=== PATIENT | male | born 1945 ===

== ENCOUNTER 2016-07-15 06:34 | Inpatient (IN) | payer BC, MEDICARE ==
[2015-06-29 14:21] VITALS: BMI 29.2
[2016-07-15] MEDS ORDERED: Propofol 10 mg/ml Inj (20 ML) ONE (07:50)
[2016-07-15] MEDS ORDERED: Lactated Ringer's 1,000 ML IV ONE ×3 (07:50→09:15)
[2016-07-15] MEDS ORDERED: Midazolam 2 MG/2 ML VIAL ONE (07:50)
[2016-07-15] MEDS ORDERED: cefTRIAXone IV 1 gm in Dextros 50 ML IVPB ONE (07:54)
[2016-07-15] MEDS ORDERED: Morphine Monoject Barrel PCA 1mg/ml IV PRN (09:38)
[2016-07-15] MEDS ORDERED: Neostigmine Methylsulfate 3mg/3ml Syringe IV ONE (09:42)
[2016-07-15] MEDS ORDERED: Gentamicin 80 mg in 0.9% NS 100 ML IVPB ONE ×2 (10:10→12:00)
--- NOTE | 2016-07-15 10:10 | PCM.SURG1 ---
Surgeon's Initial Post Op Note - Surgeon's Notes Surgeon: Maikol SUERO Ferryboat Helper: Eliseo SUERO Pre-Operative Diagnosis: BPH. BLADDER CALCULI Operative Findings: SAME Post-Operative Diagnosis: SAME Operation Performed: SUPRAPUBIC PROSTATECTOMY, CYSTOLITHOTOMY Specimen/Specimens Removed: PROSTATE, BLADDER STONES Estimated Blood Loss: EBL {In ML}: 150 Blood Products Given: N/A Drains Used: Sierra Ashby Post-Op Condition: Good Date of Surgery/Procedure: 07/15/16 Time of Surgery/Procedure: 09:40
[2016-07-15] MEDS: HYDROmorphone 0.5 mg/0.5 ml ISec IVP PRN ×4 (10:30→12:32)
[2016-07-15] MEDS: Potassium Ch 20mEq in D5-1/2NS 1,000 ML IV SCH (12:00)
--- NOTE | 2016-07-15 12:10 | CP.PCM.CON ---
History of Present Illness - History of Present Illness History of Present Illness: COMPREHENSIVE CONSULT HPI PT IS S/P SUPRAPUBIC PROSTECTOMY FOR MEDICAL F/U CURRENTLY POST OP PAST HIST. HTN/STROKE/.ROLL TRUCKER SHUNT/BUR HOLE PERSONAL HIST: Smoking. Y Alcohol. Y Allergy N Travel_- . FAMILY HIST : ROS : Constitutional: Negative for weight change, chills, Eyes: Negative for redness, swelling, itching, discharge, vision changes, blurry vision, double vision, glaucoma, cataracts, Ears: Negative for hearing loss, ringing, , tinnitus, vertigo Nose: Negative for rhinorrhea, stuffiness, sniffing, itching, postnasal drip, discoloration, nasal congestion and epistaxis. Throat: Negative for throat clearing, sore throat, hoarseness, difficulty swallowing and difficulty speaking. Respiratory: Negative for cough, chest tightness, sputum or phlegm, chronic cough, hemoptysis, wheezing, snoring at night, pleuritic chest pain and daytime somnolence. Cardiovascular: Negative for chest pain, palpitations, orthopnea, PND, Edema of legs, leg cramps, angina, claudication, syncope, irregular heartbeat, Neurology: Negative for irritability, muscle weakness, numbness and tingling, seizures, tremors, migraines, dizziness/vertigo, slurred speech, syncope, memory loss, mood changes, recurrent headaches Gastrointestinal: Negative for difficulty swallowing, diarrhea, constipation, black stools, rectal bleeding, nausea, flatulence, reflux, poor appetite, changes in bowel habits, abdominal pain Genitourinary POST OP Musculoskeletal: Negative for swollen joints, back pain, , neck pain, morning stiffness of joints, . Skin: Negative for rash, ulcers, itching, dry skin and pigmented lesions. P/E: Constitutional: Appears stated age and in no apparent distress. Head: Normocephalic. Ears: External ear canals patent without inflammation. Tympanic membranes intact with normal light reflex and landmark. Eyes: Pupils are central, bilaterally equal, symmetrical and reacts to light with normal movements and no icterus or pallor. Nose: External nares are patent. Mucosa is pink Mouth-Throat: Good general appearance and condition. No post-pharyngeal/oropharyngeal erythema and tonsillar hypertrophy. Good dental hygiene. Neck-Lymphatic: Neck is supple with normal ROM, no thyromegaly, lymph nodes or masses. JVD is normal with no carotid bruit. Lungs: Clear to percussion and auscultation with bilateral normal air entry. Cardiovascular: S1 and S2 are normal with no murmurs, gallops and rub. GI Exam: No hepatomegaly. Abdomen is soft and non-tender. No Organomegaly , masses or hernias are evident and bowel sounds are normal and active. Neurology: Higher function and all cranial nerves intact, with no gross motor or sensory deficit. Superficial and deep reflexes are normal with downwards planters. No cerebellar deficit with normal gait. Musculoskeletal: No tender spots with normal curvature of the spine with no swelling or restricted ROM of the small and large joints. Extremities: Homans sign absent. Intact pulses with no pitting edema, calf tenderness or skin color changes. Skin: No rash, eruptions or abnormal skin pigmentation LAB/RADIOLOGY: ASSESMENT : 1 S/P PROSTECTOMY 2 HTN STABLE 3 HAD IV LEXISCAN MYOVIEW, WILL REVIEW 4 PLAN : Past Patient History - Past Social History Smoking Status: Current Some Days Smoker - CARDIAC Hx Cardiac Disorders: Yes Hx Hypercholesterolemia: Yes Hx Hypertension: Yes - PULMONARY Hx Respiratory Disorders: Yes Hx Pulmonary Edema: Yes (PER DR BRUNNER CLEARANCE PT UNAWARE) - NEUROLOGICAL Hx Neurological Disorder: Yes Other/Comment: brain bleed x2 - HEENT Hx HEENT Problems: Yes Hx Cataracts: Yes (right eye) - RENAL Hx Chronic Kidney Disease: Yes Hx Kidney Stones: Yes - MUSCULOSKELETAL/RHEUMATOLOGICAL Hx Musculoskeletal Disorders: Yes Hx Falls: Yes - GENITOURINARY/GYNECOLOGICAL Hx Genitourinary Disorders: Yes Hx Prostate Problems: Yes (ELEVATED PSA) - SURGICAL HISTORY Hx Surgeries: Yes Hx Appendectomy: Yes Hx Cardiac Catheterization: Yes (2012) Other/Comment: prostate. bladder stones - ANESTHESIA Hx Anesthesia: Yes Hx Anesthesia Reactions: No Hx Malignant Hyperthermia: No Has any member of the family had a problem w/ anesthesia?: No Meds Allergies/Adverse Reactions: Allergies Allergy/AdvReac Type Severity Reaction Status Date / Time No Known Allergies Allergy Verified 06/29/15 14:13 - Medications Medications: Current Medications Docusate Sodium (Colace) 100 mg PO TID [facility] Potassium Chloride/Dextrose/Sod Cl (Potassium Chl 20 Meq In D5-1/2ns) 1,000 mls @ 100 mls/hr IV .Q10H [facility] Ceftriaxone Sodium (Rocephin Iv 1 Gm Duplex) 50 mls @ 100 mls/hr IVPB DAILY [facility] Gentamicin Sulfate/Sodium Chloride (Gentamicin Iv 80 Mg Premix) 100 mls @ 100 mls/hr IVPB ONCE ONE Stop: 07/15/16 12:59 Last Admin: 07/15/16 11:00 Dose: 0 mls Morphine Sulfate/Sodium Chloride (Morphine Seo Team Lead Monoject Barrel) 30 mg IV Q4 PRN PRN Reason: Protocol Results - Vital Signs Recent Vital Signs: Last Vital Signs Temp 97.6 F 07/15/16 10:06 Pulse 72 07/15/16 11:30 Resp 11 L 07/15/16 11:30 BP 115/70 07/15/16 11:30 Pulse Ox 95 07/15/16 11:30 - Labs Labs: Laboratory Results - last 24 hr 07/15/16 07:30 Blood Type O POSITIVE Antibody Screen Negative
[2016-07-15] MEDS ORDERED: DiphenhydrAMINE 50 mg/ml Inj ONE (13:53)
[2016-07-15] MEDS ORDERED: DiphenhydrAMINE 50 mg/ml Inj IVP STA (13:55)
[2016-07-16] MEDS: Potassium Ch 20mEq in D5-1/2NS 1,000 ML IV SCH ×4 (00:16→16:33)
[2016-07-16 07:25] LABS: CHLORIDE 105 mmol/L (98-107); POTASSIUM 3.7 mmol/L (3.6-5.2); SODIUM 139 mmol/L (132-148)
[2016-07-16 07:28] LABS: BLOOD UREA NITROGEN 19 mg/dL (9-20); CALCIUM 8.2 mg/dl (8.6-10.4); CARBON DIOXIDE 21 mmol/L (22-30); GFR AFRICAN-AMERICAN > 60; GLUCOSE,RANDOM 118 mg/dL (75-110)
[2016-07-16 07:45] LABS: HEMATOCRIT 42.1 % (35.0-51.0); MEAN CELL VOLUME 87.2 fL (80.0-94.0); MEAN CORPUSCULAR HEMOGLOBIN 28.6 pg (27.0-31.0); MEAN CORPUSCULAR HGB CONC 32.8 g/dL (33.0-37.0); MEAN PLATELET VOLUME 8.9 fL (7.2-11.7); RED CELL DISTRIBUTION WIDTH 14.8 % (11.5-14.5)
[2016-07-16 07:51] LABS: WHITE BLOOD COUNT 19.7 K/uL (4.8-10.8)
--- NOTE | 2016-07-16 07:51 | PCM.URO ---
Urology Progress Note - General General: Tolerating Diet - Subjective Abdominal Pain: Yes Flank Pain: No Nausea: No Vomiting: No Hematuria: No Dsypnea: No Chest Pain: No Fever & Chills: No - Objective Lab Results Last 24 Hours: Laboratory Results - last 24 hr 07/15/16 07/16/16 07:30 07:06 Sodium 139 Potassium 3.7 Chloride 105 Carbon Dioxide 21 L Anion Gap 17 BUN 19 Creatinine 1.1 Est GFR ( Amer) > 60 Est GFR (Non-Af Amer) > 60 Random Glucose 118 H Calcium 8.2 L Blood Type O POSITIVE Antibody Screen Negative Intake & Output: Intake & Output 07/15/16 07/16/16 07/16/16 18:59 06:59 18:59 Intake Total 50 9900 Output Total 800 77665 Balance -750 -3050 Intake: IV 50 Intake, IV Amount 800 Left Antecubital 800 Oral 100 Other 9000 Output: Drainage 50 50 Lower Abdomen 50 Urine 750 05821 3-way Urethral 1950 Other: Voiding Method 3-way Jennings with CBI Vital Signs: Vital Signs - 24 hr 07/15/16 07/15/16 07/15/16 10:06 10:20 10:30 Temperature 97.6 F Pulse Rate 87 78 70 Respiratory 15 13 12 Rate Blood Pressure 104/63 108/61 111/68 O2 Sat by Pulse 94 L 94 L 94 L Oximetry 07/15/16 07/15/16 07/15/16 10:45 11:00 11:15 Temperature Pulse Rate 68 69 72 Respiratory 12 13 12 Rate Blood Pressure 118/67 112/64 127/67 O2 Sat by Pulse 95 95 96 Oximetry 07/15/16 07/15/16 07/15/16 11:30 12:00 12:30 Temperature Pulse Rate 72 78 82 Respiratory 11 L 12 13 Rate Blood Pressure 115/70 110/68 114/68 O2 Sat by Pulse 95 96 96 Oximetry 07/15/16 07/15/16 07/15/16 13:00 14:00 15:00 Temperature Pulse Rate 85 84 88 Respiratory 14 13 12 Rate Blood Pressure 109/63 113/82 103/60 O2 Sat by Pulse 95 95 97 Oximetry 07/15/16 07/15/16 07/15/16 16:00 16:20 16:45 Temperature 98 F Pulse Rate 87 87 88 Respiratory 15 15 20 Rate Blood Pressure 119/68 119/68 120/69 O2 Sat by Pulse 98 98 97 Oximetry 07/15/16 07/15/16 07/15/16 17:00 17:45 18:00 Temperature 98.9 F Pulse Rate 92 H 95 H 94 H Respiratory 18 21 21 Rate Blood Pressure 123/73 126/68 156/92 H O2 Sat by Pulse 96 97 94 L Oximetry 07/15/16 07/16/16 23:30 04:05 Temperature 98.3 F 98.8 F Pulse Rate 102 H 94 H Respiratory 20 20 Rate Blood Pressure 125/67 155/84 H O2 Sat by Pulse 94 L 95 Oximetry - Physical Exam Abdominal Exam: Soft (LUNGS: CLEAR TO PAND A HERAT: REG RHYTHM), Non-Tender, Non -Distended Bowel Sounds: Normal Dressing: Dry, Intact Back: No CVA Tenderness Genitalia: Without Inflammation Urinary Catheter Draining Well: Yes Urine Color: Clear, Yellow Extremities: Normal: Bilateral - Male Phallus: Normal Scrotum: Normal Testes: Normal: Bilateral - Plan Advance Diet: Yes Catheter Care: Yes Ambulation - Out of Bed: Yes Intake & Output: Yes See Orders: Yes Additional Information: IMP: DOING WELL POST-SPP - Date & Time of Note Date: 07/16/16 Time: 07:50
[2016-07-16] MEDS: cefTRIAXone IV 1 gm in Dextros 50 ML IVPB SCH (11:08)
--- NOTE | 2016-07-16 12:56 | CP.PCM.PN ---
Subjective - Date & Time of Evaluation Date of Evaluation: 07/16/16 Time of Evaluation: 12:55 - Subjective Subjective: POST OP /NO CP URINE GRM NEG RODS STRESS TEST REVIEWED: POS FOR ISCHEMIC HEART DISEASE , WILL D/W FAMILY Objective - Vital Signs/Intake and Output Vital Signs (last 24 hours): Temp Pulse Resp BP Pulse Ox 98.7 F 94 H 35 H 162/81 H 95 07/16/16 08:07 07/16/16 08:07 07/16/16 09:24 07/16/16 08:07 07/16/16 09:24 Intake and Output: 07/16/16 07/16/16 11:59 23:59 Intake Total 6900 Output Total 7430 Balance -530 - Medications Medications: Current Medications Amlodipine Besylate (Norvasc) 10 mg PO DAILY [facility] Last Admin: 07/16/16 11:07 Dose: 10 mg Docusate Sodium (Colace) 100 mg PO TID [facility] Last Admin: 07/16/16 11:07 Dose: 100 mg Potassium Chloride/Dextrose/Sod Cl (Potassium Chl 20 Meq In D5-1/2ns) 1,000 mls @ 100 mls/hr IV .Q10H [facility] Last Admin: 07/16/16 06:34 Dose: Not Given Ceftriaxone Sodium (Rocephin Iv 1 Gm Duplex) 50 mls @ 100 mls/hr IVPB DAILY [facility] Last Admin: 07/16/16 11:08 Dose: 100 mls/hr Losartan Potassium (Cozaar) 100 mg PO DAILY [facility] Last Admin: 07/16/16 11:07 Dose: 100 mg Morphine Sulfate/Sodium Chloride (Morphine Forklift Picker Monoject Barrel) 30 mg IV Q4 PRN PRN Reason: Protocol Last Admin: 07/15/16 11:10 Dose: 30 mg - Labs Labs: 07/16/16 07:06 07/16/16 07:06
[2016-07-16] MEDS ORDERED: Oxycodone/Acetaminophen 5/325 mg Tab PO PRN ×2 (15:40)
[2016-07-17] MEDS: Potassium Ch 20mEq in D5-1/2NS 1,000 ML IV SCH ×2 (02:15→04:06)
[2016-07-17 07:30] LABS: HEMATOCRIT 39.8 % (35.0-51.0); MEAN CELL VOLUME 86.2 fL (80.0-94.0); MEAN CORPUSCULAR HEMOGLOBIN 28.2 pg (27.0-31.0); MEAN CORPUSCULAR HGB CONC 32.7 g/dL (33.0-37.0); MEAN PLATELET VOLUME 9.3 fL (7.2-11.7); RED CELL DISTRIBUTION WIDTH 14.9 % (11.5-14.5); WHITE BLOOD COUNT 20.1 K/uL (4.8-10.8)
[2016-07-17 07:36] LABS: CHLORIDE 104 mmol/L (98-107); POTASSIUM 3.5 mmol/L (3.6-5.2); SODIUM 138 mmol/L (132-148)
[2016-07-17 07:39] LABS: BILIRUBIN,TOTAL 0.5 mg/dL (0.2-1.3); GFR AFRICAN-AMERICAN > 60
[2016-07-17 07:40] LABS: ALB/GLOB RATIO 1.1 (1.0-2.1); ALKALINE PHOSPHATASE 65 U/L (38-126); ALT/SGPT 19 U/L (21-72); AST/SGOT 17 U/L (17-59); BLOOD UREA NITROGEN 14 mg/dL (9-20); CALCIUM 8.8 mg/dl (8.6-10.4); CARBON DIOXIDE 22 mmol/L (22-30); GLUCOSE,RANDOM 105 mg/dL (75-110)
--- NOTE | 2016-07-17 08:11 | OP ---
PROCEDURE DATE: 07/15/2016 PREOPERATIVE DIAGNOSES: Benign prostatic enlargement. Bladder calculi. POSTOPERATIVE DIAGNOSES: Benign prostatic enlargement. Bladder calculi. PROCEDURES: Suprapubic prostatectomy. Cystolithotomy. OPERATING SURGEON: Dr. Nazanin Pablo. PAYROLL AUDITOR: Dr. Jomar Pablo. PROCEDURE FOLLOWS: General anesthesia was administered. The patient was in the supine position. The abdomen and genitalia prepped and draped sterilely. Mild flexion and Trendelenburg position wer e obtained. A Jennings catheter was inserted per urethra. The bladder was filled via the Jennings catheter via a slow drip. A transverse incision was made approximately 2 cm cephalad to the pubic symphysis. The incision was extended through the skin and subcutaneous tissue where hemostasis was achieved using electrocautery. The anterior rectus sheath was incised in a transverse direction. The rectus abdominis muscles wer e retracted laterally, thus gaining entrance into the prevesical space. The prevesical fascia and fat was swept cephalad. The bladder was thus exposed. A longitudinal cystotomy was made between stay sutures of 0 chromic. The bladder was inspected. There were 2 large bladder stones within the bladder. The largest stone was greater than 5-6 cm in diameter. The stones were removed. The bladder was reinspected. There were no further stones identified. The re was a diverticulum noted on the right posterolateral wall. There were no further stones identifie d as described. The ureteral orifices were identified bilaterally. There was intravesical middle lobe hypertrophy in addition to lateral lobe hypertrophy of the prostate. The mucosa overlying the prostatic adenoma at the bladder neck was incised under direct vision with electrocautery. The enucleation of the prostate was performed in standard fashion. The anterior commissure was cracked. The plane between the adenoma and the surgical capsule was deve loped circumferentially but digital dissection. The posterior midline was similarly performed. The dissection was carried down toward the apex, where the adenoma was fully divided and removed. The en larged prostatic tissue was thus removed. [id number] sutures of 0 chromic were placed at the bladder neck for hemostasis, with careful att ention to identification and preservation of the ureteral orifices. A 24-Kyr[place] Jennings catheter was inserted per urethra. A 3-way catheter was employed. The bladder was then closed in 2 layers with continuous locking suture of 0 chromic, followed by inte rrupted sutures of 0 chromic. A watertight closure of the bladder was thus accomplished. Bladder irrigation was clear. A 10 mm [place] and [place] drains were placed at the prevesical space to exit through the woun d. The wound was then was closed as follows. The rectus sheath was reapproximated with interrupted sutures of 0 Dexon. The anterior rectus sheath was reapproximated with interrupted sutures of 0 Dexo n. The subcutaneous tissue was irrigated and reapproximated with 3-0 Dexon. Skin alicia and a ster ile dressing were applied. The patient's vital signs remained stable. The bladder drainage was clear. The patient was transferred to recovery room in satisfactory condition. Nazanin Pablo MD cc: [id number] TT: 07/17/2016 08:10:22 ector
[2016-07-17] MEDS: cefTRIAXone IV 1 gm in Dextros 50 ML IVPB SCH (09:39)
--- NOTE | 2016-07-17 13:19 | CP.PCM.PN ---
Subjective - Date & Time of Evaluation Date of Evaluation: 07/17/16 Time of Evaluation: 13:17 - Subjective Subjective: POST OP , PAIN NO CP URINE SHOWS KLEB. PNEUMONIA WITH MULTIPLE RESISTANCE ID EVAL Objective - Vital Signs/Intake and Output Vital Signs (last 24 hours): Temp Pulse Resp BP Pulse Ox 98.1 F 95 H 20 159/80 H 96 07/17/16 07:46 07/17/16 07:46 07/17/16 07:46 07/17/16 07:46 07/17/16 07:46 Intake and Output: 07/17/16 07/17/16 11:59 23:59 Output Total 2601 Balance -2601 - Medications Medications: Current Medications Amlodipine Besylate (Norvasc) 10 mg PO DAILY [facility] Last Admin: 07/17/16 09:35 Dose: 10 mg Docusate Sodium (Colace) 100 mg PO TID [facility] Last Admin: 07/17/16 09:32 Dose: 100 mg Ceftriaxone Sodium (Rocephin Iv 1 Gm Duplex) 50 mls @ 100 mls/hr IVPB DAILY [facility] Last Admin: 07/17/16 09:39 Dose: 100 mls/hr Losartan Potassium (Cozaar) 100 mg PO DAILY [facility] Last Admin: 07/17/16 09:32 Dose: 100 mg Oxybutynin Chloride (Ditropan Tab) 5 mg PO TID [facility] Last Admin: 07/17/16 09:32 Dose: 5 mg Oxycodone/Acetaminophen (Percocet 5/325 Mg Tab) 1 tab PO Q4H PRN PRN Reason: Pain, Mild (1-3) Stop: 07/19/16 15:41 Oxycodone/Acetaminophen (Percocet 5/325 Mg Tab) 2 tab PO Q4H PRN PRN Reason: Pain, moderate (4-7) Stop: 07/19/16 15:41 - Labs Labs: 07/17/16 07:11 07/17/16 07:11
[2016-07-17] MEDS ORDERED: Potassium Chloride 20 mEq ER Tab PO ONE (15:18)
--- NOTE | 2016-07-17 16:26 | CP.PCM.CON ---
History of Present Illness - History of Present Illness History of Present Illness: INFECTIOUS DISEASE CONSULTATION. HPI: 71-year-old male with past medical history off hypertension, intracranial hemorrhage 10 years ago status post bur hole was admitted to [facility] by Dr. Nazanin Pablo [facility] 07/15/16.. Patient is status post suprapubic prostatectomy cystolithotomy and removal of bladder stones on 07/15/16. Postoperatively patient urine cultures came back positive for Klebsiella pneumoniae ESBL negative but sensitive only to Tygacil and colistin. Infectious disease consultation requested for the above as well as increasing leukocytosis of 20,000 noted postoperatively. Patient denies any cough or shortness of breath. Denies any headache, chest pain, nausea or vomiting except for postoperative pain. Patient denies any fever or chills. PMD: Dr. Brunner PMH: hypertension, ?intracranial hemorrhage (10 years ago) PSH: gilbert hole procedure, appendectomy, prostate surgery Home Medications: reviewed Social History: lives with ; smokes 1ppd; drinks weekly; denies illicit drug use allergies; hydromorphone Review of Systems - Constitutional Constitutional: absent: Chills, Fever - EENT Eyes: absent: Change in Vision Nose/Mouth/Throat: absent: Mouth Lesions - Cardiovascular Cardiovascular: absent: Chest Pain, Dyspnea, Palpitations - Respiratory Respiratory: absent: Cough, Hemoptysis - Gastrointestinal Gastrointestinal: Abdominal Pain. absent: Change in Stool Character - Genitourinary Genitourinary: Difficulty Urinating, Pyuria, Hx Renal/Bladder Calculi - Neurological Neurological: As Per HPI - Hematologic/Lymphatic Hematologic: As Per HPI. absent: Lymphadenopathy Past Patient History - Past Social History Smoking Status: Former Smoker - CARDIAC Hx Hypercholesterolemia: Yes Hx Hypertension: Yes - PULMONARY Hx Respiratory Disorders: Yes Hx Pulmonary Edema: Yes (PER DR BRUNNER CLEARANCE PT UNAWARE) - NEUROLOGICAL Hx Neurological Disorder: Yes Other/Comment: brain bleed x2 - HEENT Hx HEENT Problems: Yes Hx Cataracts: Yes (right eye) - RENAL Hx Chronic Kidney Disease: Yes Hx Kidney Stones: Yes - MUSCULOSKELETAL/RHEUMATOLOGICAL Hx Musculoskeletal Disorders: Yes Hx Falls: Yes - GENITOURINARY/GYNECOLOGICAL Hx Genitourinary Disorders: Yes Hx Prostate Problems: Yes (ELEVATED PSA) - PSYCHIATRIC Hx Substance Use: Yes - SURGICAL HISTORY Hx Surgeries: Yes Hx Appendectomy: Yes Hx Cardiac Catheterization: Yes (2012) Other/Comment: prostate. bladder stones - ANESTHESIA Hx Anesthesia: Yes Hx Anesthesia Reactions: No Hx Malignant Hyperthermia: No Has any member of the family had a problem w/ anesthesia?: No Meds Allergies/Adverse Reactions: Allergies Allergy/AdvReac Type Severity Reaction Status Date / Time hydromorphone AdvReac ITCHING Verified 07/16/16 12:21 - Medications Medications: Current Medications Amlodipine Besylate (Norvasc) 10 mg PO DAILY [facility] Last Admin: 07/17/16 09:35 Dose: 10 mg Docusate Sodium (Colace) 100 mg PO TID [facility] Last Admin: 07/17/16 13:31 Dose: 100 mg Ceftriaxone Sodium (Rocephin Iv 1 Gm Duplex) 50 mls @ 100 mls/hr IVPB DAILY [facility] Last Admin: 07/17/16 09:39 Dose: 100 mls/hr Losartan Potassium (Cozaar) 100 mg PO DAILY [facility] Last Admin: 07/17/16 09:32 Dose: 100 mg Oxybutynin Chloride (Ditropan Tab) 5 mg PO TID [facility] Last Admin: 07/17/16 13:31 Dose: 5 mg Oxycodone/Acetaminophen (Percocet 5/325 Mg Tab) 1 tab PO Q4H PRN PRN Reason: Pain, Mild (1-3) Stop: 07/19/16 15:41 Oxycodone/Acetaminophen (Percocet 5/325 Mg Tab) 2 tab PO Q4H PRN PRN Reason: Pain, moderate (4-7) Stop: 07/19/16 15:41 Physical Exam - Constitutional Appears: No Acute Distress - Head Exam Head Exam: NORMAL INSPECTION - Eye Exam Eye Exam: EOMI, PERRL - ENT Exam ENT Exam: Normal Oropharynx - Neck Exam Neck exam: Positive for: Normal Inspection - Respiratory Exam Respiratory Exam: Clear to Auscultation Bilateral - Cardiovascular Exam Cardiovascular Exam: REGULAR RHYTHM, +S1, +S2 - GI/Abdominal Exam GI & Abdominal Exam: Normal Bowel Sounds, Soft, Tenderness (suprapubic post operative site. Dressing in place.) - Exam Exam: NORMAL INSPECTION. absent: Bladder Distension (Jennings in place.) - Extremities Exam Extremities exam: Positive for: pedal pulses present. Negative for: calf tenderness - Neurological Exam Neurological exam: Alert, Oriented x3 - Psychiatric Exam Psychiatric exam: Normal Mood - Skin Skin Exam: Normal Color, Warm Results - Vital Signs Recent Vital Signs: Last Vital Signs Temp 98.1 F 07/17/16 07:46 Pulse 95 H 07/17/16 07:46 Resp 20 07/17/16 07:46 BP 159/80 H 07/17/16 07:46 Pulse Ox 96 07/17/16 07:46 - Labs Result Diagrams: 07/18/16 09:04 07/18/16 09:04 Labs: Laboratory Results - last 24 hr 07/17/16 07:11 WBC 20.1 H RBC 4.62 Hgb 13.0 Hct 39.8 MCV 86.2 MCH 28.2 MCHC 32.7 L RDW 14.9 H Plt Count 279 MPV 9.3 Sodium 138 Potassium 3.5 L Chloride 104 Carbon Dioxide 22 Anion Gap 16 BUN 14 Creatinine 0.9 Est GFR ( Amer) > 60 Est GFR (Non-Af Amer) > 60 Random Glucose 105 Calcium 8.8 Total Bilirubin 0.5 AST 17 D ALT 19 L D Alkaline Phosphatase 65 Total Protein 6.0 L Albumin 3.1 L D Globulin 2.9 Albumin/Globulin Ratio 1.1 Assessment & Plan - Assessment and Plan (Free Text) Assessment: -POSTOPERATIVE S/P SUPRAPUBIC PROSTATECTOMY/CYSTOLITHOTOMY. -LEUKOCYTOSIS. -UROSEPSIS/CYSTITIS-MDR kLEBSIELLA PNEUMONIAE. -HYPERTENSION. -HX OF INTRACRANIAL HEMORRHAGE S/P GILBERT HOLE. PLAN; BLOOD CULTURES 2 SETS 15 MINUTES APART. D/C iv CEFTRIAXONE. START iv TYGACIL 100 MG iv PIGGYBACK LOADING DOSE.07/17/16 F/O TYGACIL 50 MG EVERY 12 HOURLY. fOLLOW-UP CULTURES TO ADJUST ANTIBIOTICS. FOLLOW-UP BLOOD WORKS IN A.M. WILL DISCUSS WITH . THANK YOU VERY MUCH FOR ALLOWING ME TO PARTICIPATE IN THE CARE OF YOUR PATIENT. wE'LL FOLLOW WHILE PATIENT IN HOSPITAL.
[2016-07-17] MEDS ORDERED: Tigecycline 100 MG in Dextrose 5% In Water 100 ML IV ONE (16:31)
[2016-07-18] MEDS: Tigecycline 50 MG in Dextrose 5% In Water 100 ML IV SCH ×2 (07:30→17:25)
--- NOTE | 2016-07-18 09:06 | PCM.URO ---
Urology Progress Note - General General: Tolerating Diet - Subjective Abdominal Pain: No (BLADDER SPASMS) Flank Pain: No Hematuria: No Dsypnea: No Chest Pain: No Fever & Chills: No - Objective Lab Studies: Reviewed (LEUKOCYTOSIS UTI) Intake & Output: Intake & Output 07/17/16 07/18/16 07/18/16 18:59 06:59 18:59 Intake Total 650 Output Total 955 1962 Balance -558 -0021 Intake: Oral 650 Output: Drainage 5 12 Lower Abdomen 5 12 Urine 950 1950 3-way Urethral 950 1200 Urethral (Jennings) 750 Other: # Bowel Movements 1 Vital Signs: Vital Signs - 24 hr 07/17/16 07/17/16 07/17/16 15:10 22:00 23:00 Temperature 98.1 F 97.7 F 98.9 F Pulse Rate 64 78 93 H Respiratory 20 20 20 Rate Blood Pressure 137/84 141/76 145/83 O2 Sat by Pulse 96 94 L 96 Oximetry 07/18/16 00:00 Temperature Pulse Rate 78 Respiratory Rate Blood Pressure O2 Sat by Pulse Oximetry - Physical Exam Abdominal Exam: Soft, Non-Tender, Non-Distended Wound: Clean, Healing Well Back: No CVA Tenderness Genitalia: Without Inflammation Urinary Catheter Draining Well: Yes Urine Color: Clear, Yellow Extremities: Normal: Bilateral - Male Phallus: Normal, Uncircumcised Scrotum: Normal Testes: Normal: Bilateral - Plan Wound Care: Yes Catheter Care: Yes Additional Information: DRAIN REMOVED. ANTIBIOTIC RX - Date & Time of Note Date: 07/18/16 Time: 09:06
[2016-07-18 09:14] LABS: BASO # 0.1 K/uL (0.0-0.2); BASO % 0.4 % (0.0-2.0); EOS # 0.1 K/uL (0.0-0.7); EOS % 0.9 % (0.0-4.0); HEMATOCRIT 40.1 % (35.0-51.0); LYMPH # 1.4 K/uL (1.0-4.3); LYMPH % 8.4 % (20.0-40.0); MEAN CELL VOLUME 87.4 fL (80.0-94.0); MEAN CORPUSCULAR HEMOGLOBIN 27.8 pg (27.0-31.0); MEAN CORPUSCULAR HGB CONC 31.9 g/dL (33.0-37.0); MEAN PLATELET VOLUME 9.3 fL (7.2-11.7); MONO # 0.9 K/uL (0.0-0.8); MONO % 5.2 % (0.0-10.0); PLATELET COUNT 287 K/uL (130-400); WHITE BLOOD COUNT 16.9 K/uL (4.8-10.8)
[2016-07-18 09:33] LABS: CHLORIDE 102 mmol/L (98-107); POTASSIUM 4.1 mmol/L (3.6-5.2); SODIUM 137 mmol/L (132-148)
[2016-07-18 09:35] LABS: CARBON DIOXIDE 20 mmol/L (22-30); GFR AFRICAN-AMERICAN > 60
[2016-07-18 09:36] LABS: ALKALINE PHOSPHATASE 78 U/L (38-126); ALT/SGPT 22 U/L (21-72); AST/SGOT 35 U/L (17-59); BILIRUBIN,DIRECT 0.4 mg/dL (0.0-0.4); BILIRUBIN,TOTAL 0.5 mg/dL (0.2-1.3); BLOOD UREA NITROGEN 23 mg/dL (9-20); CALCIUM 8.9 mg/dl (8.6-10.4); GLUCOSE,RANDOM 107 mg/dL (75-110); TOTAL PROTEIN 6.3 g/dL (6.3-8.3)
--- NOTE | 2016-07-18 10:12 | RAD ---
HISTORY: rule out pneumonia COMPARISON: No prior. FINDINGS: LUNGS: Hazy opacity in the right middle lobe. PLEURA: No significant pleural effusion identified, no pneumothorax apparent. CARDIOVASCULAR: Normal. OSSEOUS STRUCTURES: The osseous structures demonstrate degenerative changes. VISUALIZED UPPER ABDOMEN: Upper abdomen is suboptimally evaluated. OTHER FINDINGS: Catheter coursing along the left jacoby thorax could be a shunt catheter. IMPRESSION: Hazy opacity in the right middle lobe. Infection should be considered.
[2016-07-18 10:55] LABS: NEUTROPHIL 84 % (50-75); TOTAL CELLS COUNTED 100
--- NOTE | 2016-07-18 13:08 | CP.PCM.PN ---
Subjective - Date & Time of Evaluation Date of Evaluation: 07/18/16 Time of Evaluation: 13:08 - Subjective Subjective: AFEBRILE POST OP PAIN BINDER OFF WBC DOWN IV AB Objective - Vital Signs/Intake and Output Vital Signs (last 24 hours): Temp Pulse Resp BP Pulse Ox 98.9 F 78 20 145/83 96 07/17/16 23:00 07/18/16 00:00 07/17/16 23:00 07/17/16 23:00 07/17/16 23:00 Intake and Output: 07/18/16 07/18/16 11:59 23:59 Output Total 752 Balance -752 - Medications Medications: Current Medications Amlodipine Besylate (Norvasc) 10 mg PO DAILY [facility] Last Admin: 07/18/16 09:34 Dose: 10 mg Docusate Sodium (Colace) 100 mg PO TID [facility] Last Admin: 07/18/16 09:32 Dose: 100 mg Tigecycline 50 mg/ Dextrose 100 mls @ 100 mls/hr IV Q12H [facility] Last Admin: 07/18/16 07:30 Dose: 100 mls/hr Losartan Potassium (Cozaar) 100 mg PO DAILY [facility] Last Admin: 07/18/16 09:34 Dose: 100 mg Oxybutynin Chloride (Ditropan Tab) 5 mg PO TID [facility] Last Admin: 07/18/16 09:36 Dose: 5 mg Oxycodone/Acetaminophen (Percocet 5/325 Mg Tab) 1 tab PO Q4H PRN PRN Reason: Pain, Mild (1-3) Stop: 07/19/16 15:41 Last Admin: 07/17/16 22:12 Dose: 1 tab Oxycodone/Acetaminophen (Percocet 5/325 Mg Tab) 2 tab PO Q4H PRN PRN Reason: Pain, moderate (4-7) Stop: 07/19/16 15:41 - Labs Labs: 07/18/16 09:04 07/18/16 09:04
--- NOTE | 2016-07-18 13:31 | CP.PCM.PN ---
Subjective - Date & Time of Evaluation Date of Evaluation: 07/18/16 Time of Evaluation: 13:31 - Subjective Subjective: CHIEF COMPLAINTS TODAY : afebrile, vss Awake and alert. c/o pain in lower abdomen at site of surgery. tube removed /surgical dressing changed by SUE this a.m. at bedside-reports patient was confused this a.m. ROS. HEENT : N. Resp : No SOB wheezing, cough Cardio : No CP, PND orthopnea GI : +ve ABDOMINAL PAIN SUPRAPUBIC. DRESSING IN PLACE.. NO NAUSEA OR VOMITING. 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 Musculoskel : N Ext. : Pedal pulses intact, no edema or calf pain Derm : N Psych : N. PE. Pt. is alert awake in no distress. V.S As noted in the chart Head ,ear nose,throat and eyes : Normal. Neck : Supple with normal carotids. Lungs: Clear air entry. Heart : S1 & S2 normal . . No murmur. S4 + Abd : Soft MILD TENDERNESS POSTOPERATIVE SITE WITH normal bowel sounds. DRESSING CLEAN AND DRY. Neuro : Moves all ext. with no localized deficit. Ext : No edema with intact pulses. Neg. calf tenderness Derm : No rashes or decubitus ulcer. Radiology/Labs . blood cultures 07/17/16 -ve for 24 hours Urine culture +ve MDR KLEBSIELLA PNEUMONIAE S- ONLY TO TYGACIL AND COLISTIN wbc DECREASING 16.9 CREATININE 1.0/bun 23. Objective - Vital Signs/Intake and Output Vital Signs (last 24 hours): Temp Pulse Resp BP Pulse Ox 98.9 F 78 20 145/83 96 07/17/16 23:00 07/18/16 00:00 07/17/16 23:00 07/17/16 23:00 07/17/16 23:00 Intake and Output: 07/18/16 07/18/16 06:59 18:59 Intake Total 650 Output Total 1962 Balance -1312 - Medications Medications: Current Medications Amlodipine Besylate (Norvasc) 10 mg PO DAILY [facility] Last Admin: 07/18/16 09:34 Dose: 10 mg Docusate Sodium (Colace) 100 mg PO TID [facility] Last Admin: 07/18/16 09:32 Dose: 100 mg Tigecycline 50 mg/ Dextrose 100 mls @ 100 mls/hr IV Q12H [facility] Last Admin: 07/18/16 07:30 Dose: 100 mls/hr Losartan Potassium (Cozaar) 100 mg PO DAILY [facility] Last Admin: 07/18/16 09:34 Dose: 100 mg Oxybutynin Chloride (Ditropan Tab) 5 mg PO TID [facility] Last Admin: 07/18/16 09:36 Dose: 5 mg Oxycodone/Acetaminophen (Percocet 5/325 Mg Tab) 1 tab PO Q4H PRN PRN Reason: Pain, Mild (1-3) Stop: 07/19/16 15:41 Last Admin: 07/17/16 22:12 Dose: 1 tab Oxycodone/Acetaminophen (Percocet 5/325 Mg Tab) 2 tab PO Q4H PRN PRN Reason: Pain, moderate (4-7) Stop: 07/19/16 15:41 - Labs Labs: 07/18/16 09:04 07/18/16 09:04 Assessment and Plan - Assessment and Plan (Free Text) Assessment: Assessment: -POSTOPERATIVE S/P SUPRAPUBIC PROSTATECTOMY/CYSTOLITHOTOMY. -LEUKOCYTOSIS. -UROSEPSIS/CYSTITIS-MDR kLEBSIELLA PNEUMONIAE. -HYPERTENSION. -HX OF INTRACRANIAL HEMORRHAGE S/P GILBERT HOLE. PLAN; Continue iv TYGACIL 100 MG iv PIGGYBACK LOADING DOSE.07/17/16 F/U TYGACIL 50 MG EVERY 12 HOURLY. fOLLOW-UP CULTURES TO ADJUST ANTIBIOTICS. FOLLOW-UP NEURO STATUS CLOSELY. wILL ADJUST ANTIBIOTICS IF NEEDED. dISCUSSED WITH PRESENT AT THE BEDSIDE. 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
[2016-07-19] MEDS: Tigecycline 50 MG in Dextrose 5% In Water 100 ML IV SCH ×2 (05:35→17:28)
[2016-07-19 07:17] LABS: BASO # 0.1 K/uL (0.0-0.2); BASO % 0.4 % (0.0-2.0); EOS # 0.2 K/uL (0.0-0.7); EOS % 1.4 % (0.0-4.0); HEMATOCRIT 37.9 % (35.0-51.0); LYMPH # 1.8 K/uL (1.0-4.3); LYMPH % 13.7 % (20.0-40.0); MEAN CELL VOLUME 86.5 fL (80.0-94.0); MEAN CORPUSCULAR HEMOGLOBIN 27.8 pg (27.0-31.0); MEAN CORPUSCULAR HGB CONC 32.1 g/dL (33.0-37.0); MEAN PLATELET VOLUME 8.8 fL (7.2-11.7); MONO % 7.7 % (0.0-10.0); RED CELL DISTRIBUTION WIDTH 14.6 % (11.5-14.5); WHITE BLOOD COUNT 12.7 K/uL (4.8-10.8)
[2016-07-19 07:30] LABS: CHLORIDE 104 mmol/L (98-107); POTASSIUM 3.8 mmol/L (3.6-5.2); SODIUM 138 mmol/L (132-148)
[2016-07-19 07:32] LABS: ALB/GLOB RATIO 1.1 (1.0-2.1); ALKALINE PHOSPHATASE 66 U/L (38-126); AST/SGOT 20 U/L (17-59); BILIRUBIN,TOTAL 0.6 mg/dL (0.2-1.3); CARBON DIOXIDE 23 mmol/L (22-30); GFR AFRICAN-AMERICAN > 60; TOTAL PROTEIN 5.6 g/dL (6.3-8.3)
[2016-07-19 07:33] LABS: ALT/SGPT 41 U/L (21-72); BLOOD UREA NITROGEN 30 mg/dL (9-20); GLUCOSE,RANDOM 84 mg/dL (75-110)
--- NOTE | 2016-07-19 13:26 | CP.PCM.PN ---
Subjective - Date & Time of Evaluation Date of Evaluation: 07/19/16 Time of Evaluation: 13:26 - Subjective Subjective: AFEBRILE LESS BLADDER PAIN WBC DOWN 12.5 IV AB Objective - Vital Signs/Intake and Output Vital Signs (last 24 hours): Temp Pulse Resp BP Pulse Ox 98.4 F 96 H 20 157/90 H 95 07/19/16 00:00 07/19/16 00:00 07/19/16 00:00 07/19/16 00:00 07/19/16 00:00 Intake and Output: 07/19/16 07/19/16 11:59 23:59 Output Total 600 Balance -600 - Medications Medications: Current Medications Amlodipine Besylate (Norvasc) 10 mg PO DAILY [facility] Last Admin: 07/19/16 10:09 Dose: 10 mg Docusate Sodium (Colace) 100 mg PO TID [facility] Last Admin: 07/19/16 10:09 Dose: Not Given Tigecycline 50 mg/ Dextrose 100 mls @ 100 mls/hr IV Q12H [facility] Last Admin: 07/19/16 05:35 Dose: 100 mls/hr Losartan Potassium (Cozaar) 100 mg PO DAILY [facility] Last Admin: 07/19/16 10:09 Dose: 100 mg Oxybutynin Chloride (Ditropan Tab) 5 mg PO TID [facility] Last Admin: 07/19/16 10:09 Dose: 5 mg Oxycodone/Acetaminophen (Percocet 5/325 Mg Tab) 1 tab PO Q4H PRN PRN Reason: Pain, Mild (1-3) Stop: 07/19/16 15:41 Last Admin: 07/17/16 22:12 Dose: 1 tab Oxycodone/Acetaminophen (Percocet 5/325 Mg Tab) 2 tab PO Q4H PRN PRN Reason: Pain, moderate (4-7) Stop: 07/19/16 15:41 - Labs Labs: 07/19/16 07:08 07/19/16 07:08
[2016-07-20] MEDS: Tigecycline 50 MG in Dextrose 5% In Water 100 ML IV SCH ×2 (05:13→17:47)
[2016-07-20 08:35] LABS: BASO % 0.4 % (0.0-2.0); EOS # 0.2 K/uL (0.0-0.7); EOS % 1.5 % (0.0-4.0); HEMATOCRIT 37.6 % (35.0-51.0); LYMPH # 2.3 K/uL (1.0-4.3); LYMPH % 18.8 % (20.0-40.0); MEAN CELL VOLUME 86.4 fL (80.0-94.0); MEAN CORPUSCULAR HGB CONC 32.4 g/dL (33.0-37.0); MEAN PLATELET VOLUME 8.3 fL (7.2-11.7); MONO # 0.9 K/uL (0.0-0.8); MONO % 7.6 % (0.0-10.0); NRBC % 0.1 % (0.0-2.0); RED CELL DISTRIBUTION WIDTH 14.5 % (11.5-14.5); WHITE BLOOD COUNT 12.5 K/uL (4.8-10.8)
[2016-07-20 08:37] LABS: CHLORIDE 105 mmol/L (98-107)
[2016-07-20 08:38] LABS: SODIUM 140 mmol/L (132-148)
[2016-07-20 08:40] LABS: ALB/GLOB RATIO 1.1 (1.0-2.1); AST/SGOT 13 U/L (17-59); BILIRUBIN,TOTAL 0.5 mg/dL (0.2-1.3); BLOOD UREA NITROGEN 37 mg/dL (9-20); CARBON DIOXIDE 25 mmol/L (22-30); GFR AFRICAN-AMERICAN > 60; TOTAL PROTEIN 5.5 g/dL (6.3-8.3)
[2016-07-20 08:41] LABS: ALKALINE PHOSPHATASE 68 U/L (38-126); ALT/SGPT 35 U/L (21-72); CALCIUM 7.9 mg/dl (8.6-10.4); GLUCOSE,RANDOM 75 mg/dL (75-110)
--- NOTE | 2016-07-20 14:29 | CP.PCM.PN ---
Subjective - Date & Time of Evaluation Date of Evaluation: 07/20/16 Time of Evaluation: 14:28 - Subjective Subjective: AFEBRILE STILL LEAKING FLUID FROM WOUND WILL NEED REHAB Objective - Vital Signs/Intake and Output Vital Signs (last 24 hours): Temp Pulse Resp BP Pulse Ox 98.6 F 86 20 158/89 H 96 07/20/16 08:30 07/20/16 08:30 07/20/16 08:30 07/20/16 08:30 07/20/16 08:30 Intake and Output: 07/20/16 07/20/16 11:59 23:59 Output Total 700 Balance -700 - Medications Medications: Current Medications Amlodipine Besylate (Norvasc) 10 mg PO DAILY [facility] Last Admin: 07/20/16 10:48 Dose: 10 mg Docusate Sodium (Colace) 100 mg PO TID [facility] Last Admin: 07/20/16 10:48 Dose: 100 mg Tigecycline 50 mg/ Dextrose 100 mls @ 100 mls/hr IV Q12H [facility] Last Admin: 07/20/16 05:13 Dose: 100 mls/hr Losartan Potassium (Cozaar) 100 mg PO DAILY [facility] Last Admin: 07/20/16 10:48 Dose: 100 mg Oxybutynin Chloride (Ditropan Tab) 5 mg PO TID [facility] Last Admin: 07/20/16 10:49 Dose: 5 mg Zolpidem Tartrate (Ambien) 10 mg PO HS PRN PRN Reason: Insomnia - Labs Labs: 07/20/16 08:14 07/20/16 08:14
[2016-07-20] MEDS ORDERED: Magnesium Hydroxide Susp 30 ml UD PO ONE ×2 (22:00)
[2016-07-21 03:59] LABS: RBC URINE 1224 /hpf (0-3); URINE BILIRUBIN NEGATIVE (NEGATIVE); URINE BLOOD 3+ (NEGATIVE); URINE COLOR Yellow (YELLOW); URINE GLUCOSE (UA) NORMAL (Normal); URINE KETONE NEGATIVE (NEGATIVE); URINE LEUKOCYTE ESTERASE 3+ Leu/uL (Negative); URINE PROTEIN 2+ mg/dL (NEGATIVE); URINE UROBILINOGEN NORMAL mg/dL (0.2-1.0); WBC CLUMPS MANY /hpf; WBC URINE 797 /hpf (0-5)
[2016-07-21] MEDS: Tigecycline 50 MG in Dextrose 5% In Water 100 ML IV SCH ×2 (05:37→18:35)
[2016-07-21 07:22] LABS: CHLORIDE 105 mmol/L (98-107); POTASSIUM 3.7 mmol/L (3.6-5.2); SODIUM 141 mmol/L (132-148)
[2016-07-21 07:24] LABS: GFR AFRICAN-AMERICAN > 60
[2016-07-21 07:25] LABS: ALKALINE PHOSPHATASE 73 U/L (38-126); ALT/SGPT 30 U/L (21-72); AST/SGOT 16 U/L (17-59); BILIRUBIN,TOTAL 0.3 mg/dL (0.2-1.3); BLOOD UREA NITROGEN 35 mg/dL (9-20); CARBON DIOXIDE 23 mmol/L (22-30); GLUCOSE,RANDOM 84 mg/dL (75-110); TOTAL PROTEIN 5.6 g/dL (6.3-8.3)
[2016-07-21 07:26] LABS: CALCIUM 8.4 mg/dl (8.6-10.4)
[2016-07-21 07:46] LABS: BASO # 0.1 K/uL (0.0-0.2); BASO % 0.5 % (0.0-2.0); EOS # 0.2 K/uL (0.0-0.7); HEMATOCRIT 38.8 % (35.0-51.0); LYMPH # 2.7 K/uL (1.0-4.3); LYMPH % 16.6 % (20.0-40.0); MEAN CELL VOLUME 86.6 fL (80.0-94.0); MEAN CORPUSCULAR HEMOGLOBIN 28.4 pg (27.0-31.0); MEAN CORPUSCULAR HGB CONC 32.8 g/dL (33.0-37.0); MEAN PLATELET VOLUME 8.4 fL (7.2-11.7); MONO # 1.1 K/uL (0.0-0.8); RED CELL DISTRIBUTION WIDTH 14.5 % (11.5-14.5)
--- NOTE | 2016-07-21 10:56 | PCM.URO ---
Urology Progress Note - General General: Tolerating Diet - Subjective Abdominal Pain: No Flank Pain: No Nausea: No Hematuria: No Chest Pain: No Fever & Chills: No - Objective Lab Studies: Reviewed Lab Results Last 24 Hours: Laboratory Results - last 24 hr 07/15/16 07/20/16 07/21/16 11:05 16:37 03:45 WBC RBC Hgb Hct MCV MCH MCHC RDW Plt Count MPV Neut % (Auto) Lymph % (Auto) [place] % (Auto) Eos % (Auto) Baso % (Auto) Neut # Lymph # [place] # Eos # Baso # Sodium Potassium Chloride Carbon Dioxide Anion Gap BUN Creatinine Est GFR ( Amer) Est GFR (Non-Af Amer) POC Glucose (mg/dL) 94 Random Glucose Calcium Total Bilirubin AST ALT Alkaline Phosphatase Total Protein Albumin Globulin Albumin/Globulin Ratio Urine Color Yellow Urine Clarity Hazy Urine pH 5.0 Ur Specific [place] 1.014 Urine Protein 2+ H Urine Glucose (UA) Normal Urine Ketones Negative Urine Blood 3+ H Urine Nitrate Negative Urine Bilirubin Negative Urine Urobilinogen Normal Ur Leukocyte Esterase 3+ H Urine WBC (Auto) 797 H Urine RBC (Auto) 1224 H Urine WBC Clumps (Auto) Many H Ur Squamous Epith Cells 2 Stone Source Bladder Stone Weight 2.8580 Stone Composition Stone Composition 2 TNP Stone Nidus Not observed 07/21/16 06:58 WBC 16.0 H RBC 4.48 Hgb 12.7 Hct 38.8 MCV 86.6 MCH 28.4 MCHC 32.8 L RDW 14.5 Plt Count 419 H MPV 8.4 Neut % (Auto) 74.9 Lymph % (Auto) 16.6 L [place] % (Auto) 7.0 Eos % (Auto) 1.0 Baso % (Auto) 0.5 Neut # 12.0 H Lymph # 2.7 [place] # 1.1 H Eos # 0.2 Baso # 0.1 Sodium 141 Potassium 3.7 Chloride 105 Carbon Dioxide 23 Anion Gap 16 BUN 35 H Creatinine 1.0 Est GFR ( Amer) > 60 Est GFR (Non-Af Amer) > 60 POC Glucose (mg/dL) Random Glucose 84 Calcium 8.4 L Total Bilirubin 0.3 AST 16 L D ALT 30 Alkaline Phosphatase 73 Total Protein 5.6 L Albumin 2.9 L Globulin 2.8 Albumin/Globulin Ratio 1.0 Urine Color Urine Clarity Urine pH Ur Specific [place] Urine Protein Urine Glucose (UA) Urine Ketones Urine Blood Urine Nitrate Urine Bilirubin Urine Urobilinogen Ur Leukocyte Esterase Urine WBC (Auto) Urine RBC (Auto) Urine WBC Clumps (Auto) Ur Squamous Epith Cells Stone Source Stone Weight Stone Composition Stone Composition 2 Stone Nidus Intake & Output: Intake & Output 07/20/16 07/21/16 07/21/16 18:59 06:59 18:59 Output Total 750 1700 Balance -750 -1700 Output: Urine 750 1700 Urethral ([place]ennings) 750 1700 Vital Signs: Vital Signs - 24 hr 07/20/16 07/20/16 07/20/16 16:00 16:40 23:00 Temperature 98.1 F 98.8 F Pulse Rate 73 73 85 Respiratory 20 20 Rate Blood Pressure 132/75 142/77 O2 Sat by Pulse 96 95 Oximetry 07/21/16 07/21/16 08:00 08:09 Temperature 98.8 F Pulse Rate 93 H 93 H Respiratory 18 Rate Blood Pressure 147/80 O2 Sat by Pulse 96 Oximetry - Physical Exam Abdominal Exam: Soft, Non-Tender, Non-Distended Dressing: Intact Back: No CVA Tenderness Genitalia: Without Inflammation Urinary Catheter Draining Well: Yes Urine Color: Clear, Yellow Extremities: Normal: Bilateral - Male Phallus: Normal, Uncircumcised Scrotum: Normal Testes: Normal: Bilateral - Plan Wound Care: Yes Catheter Care: Yes Intake & Output: Yes Additional Information: antibiotic rx as per ID - Date & Time of Note Date: 07/21/16 Time: 10:55
--- NOTE | 2016-07-21 12:29 | CP.PCM.PN ---
Subjective - Date & Time of Evaluation Date of Evaluation: 07/21/16 Time of Evaluation: 12:28 - Subjective Subjective: AFEBRILE NO CP NO DRAINAGE FOR ELISABETH FOR IV AB Objective - Vital Signs/Intake and Output Vital Signs (last 24 hours): Temp Pulse Resp BP Pulse Ox 98.8 F 93 H 18 147/80 96 07/21/16 08:09 07/21/16 08:09 07/21/16 08:09 07/21/16 08:09 07/21/16 08:09 Intake and Output: 07/21/16 07/21/16 11:59 23:59 Output Total 1000 Balance -1000 - Medications Medications: Current Medications Amlodipine Besylate (Norvasc) 10 mg PO DAILY [facility] Last Admin: 07/21/16 09:32 Dose: 10 mg Docusate Sodium (Colace) 100 mg PO TID [facility] Last Admin: 07/21/16 09:32 Dose: 100 mg Tigecycline 50 mg/ Dextrose 100 mls @ 100 mls/hr IV Q12H [facility] Last Admin: 07/21/16 05:37 Dose: 100 mls/hr Losartan Potassium (Cozaar) 100 mg PO DAILY [facility] Last Admin: 07/21/16 09:32 Dose: 100 mg Oxybutynin Chloride (Ditropan Tab) 5 mg PO TID [facility] Last Admin: 07/21/16 09:32 Dose: 5 mg Zolpidem Tartrate (Ambien) 10 mg PO HS PRN PRN Reason: Insomnia Last Admin: 07/20/16 21:33 Dose: 10 mg - Labs Labs: 07/21/16 06:58 07/21/16 06:58
[2016-07-21 15:54] VITALS: RESP 20
--- NOTE | 2016-07-21 18:01 | CP.PCM.PN ---
Subjective - Date & Time of Evaluation Date of Evaluation: 07/21/16 Time of Evaluation: 18:01 - Subjective Subjective: CHIEF COMPLAINTS TODAY : afebrile, vss Awake and alert. c/o serous drainage from the wound site. Dressing in place [place] in place. WBC 16.0 increasing today. patient not confused and states was never confused. - at bedside. ROS. HEENT : N. Resp : No SOB wheezing, cough Cardio : No CP, PND orthopnea GI : +ve ABDOMINAL PAIN SUPRAPUBIC. DRESSING IN PLACE.. NO NAUSEA OR VOMITING. 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 Musculoskel : N Ext. : Pedal pulses intact, no edema or calf pain Derm : N Psych : N. PE. Pt. is alert awake in no distress. V.S As noted in the chart Head ,ear nose,throat and eyes : Normal. Neck : Supple with normal carotids. Lungs: Clear air entry. Heart : S1 & S2 normal . . No murmur. S4 + Abd : Soft MILD TENDERNESS POSTOPERATIVE SITE WITH normal bowel sounds. DRESSING CLEAN AND DRY. Neuro : Moves all ext. with no localized deficit. Ext : No edema with intact pulses. Neg. calf tenderness Derm : No rashes or decubitus ulcer. Radiology/Labs . blood cultures 07/17/16 -ve for 24 hours Urine culture +ve MDR KLEBSIELLA PNEUMONIAE S- ONLY TO TYGACIL AND COLISTIN CREATININE 1.0/bun 35. repeat UA 07/21/16 hazy 3+ blood, 3+ leukocytes, WBC 797, wbc clumps many. RBCs 1224. Objective - Vital Signs/Intake and Output Vital Signs (last 24 hours): Temp Pulse Resp BP Pulse Ox 98.3 F 75 20 132/69 95 07/21/16 15:53 07/21/16 15:53 07/21/16 15:53 07/21/16 15:53 07/21/16 15:53 Intake and Output: 07/21/16 07/21/16 06:59 18:59 Output Total 1700 700 Balance -1700 -700 - Medications Medications: Current Medications Amlodipine Besylate (Norvasc) 10 mg PO DAILY [facility] Last Admin: 07/21/16 09:32 Dose: 10 mg Docusate Sodium (Colace) 100 mg PO TID [facility] Last Admin: 07/21/16 13:51 Dose: 100 mg Tigecycline 50 mg/ Dextrose 100 mls @ 100 mls/hr IV Q12H [facility] Last Admin: 07/21/16 05:37 Dose: 100 mls/hr Losartan Potassium (Cozaar) 100 mg PO DAILY [facility] Last Admin: 07/21/16 09:32 Dose: 100 mg Oxybutynin Chloride (Ditropan Tab) 5 mg PO TID [facility] Last Admin: 07/21/16 13:51 Dose: 5 mg Zolpidem Tartrate (Ambien) 10 mg PO HS PRN PRN Reason: Insomnia Last Admin: 07/20/16 21:33 Dose: 10 mg - Labs Labs: 07/21/16 06:58 07/21/16 06:58 Assessment and Plan - Assessment and Plan (Free Text) Assessment: -POSTOPERATIVE S/P SUPRAPUBIC PROSTATECTOMY/CYSTOLITHOTOMY. -LEUKOCYTOSIS. -Urinary leakage from the suprapubic wound ? ETIOLOGY NOT CLEAR -UROSEPSIS/CYSTITIS-MDR kLEBSIELLA PNEUMONIAE. -HYPERTENSION. -HX OF INTRACRANIAL HEMORRHAGE S/P GILBERT HOLE. PLAN; FOLLOW-UP REPEAT URINE CULTURES Continue iv TYGACIL 100 MG iv PIGGYBACK LOADING DOSE.07/17/16 F/U TYGACIL 50 MG EVERY 12 HOURLY.-DATE 5. WILL DISCUSS WITH /PMD. WILL ADJUST ANTIBIOTICS AFTER OBTAINING REPEAT CULTURES ?FUNGAL SUPER INFECTION.
[2016-07-22] MEDS: Tigecycline 50 MG in Dextrose 5% In Water 100 ML IV SCH ×2 (05:28→17:35)
[2016-07-22 07:20] LABS: CHLORIDE 105 mmol/L (98-107)
[2016-07-22 07:21] LABS: POTASSIUM 3.8 mmol/L (3.6-5.2); SODIUM 139 mmol/L (132-148)
[2016-07-22 07:23] LABS: ALB/GLOB RATIO 1.1 (1.0-2.1); ALKALINE PHOSPHATASE 73 U/L (38-126); AST/SGOT 12 U/L (17-59); BILIRUBIN,DIRECT 0.3 mg/dL (0.0-0.4); BILIRUBIN,TOTAL 0.3 mg/dL (0.2-1.3); BLOOD UREA NITROGEN 32 mg/dL (9-20); CARBON DIOXIDE 24 mmol/L (22-30); GFR AFRICAN-AMERICAN > 60; TOTAL PROTEIN 5.2 g/dL (6.3-8.3)
[2016-07-22 07:24] LABS: ALT/SGPT 24 U/L (21-72); CALCIUM 7.7 mg/dl (8.6-10.4); GLUCOSE,RANDOM 89 mg/dL (75-110)
[2016-07-22 07:33] LABS: BASO # 0.1 K/uL (0.0-0.2); BASO % 0.5 % (0.0-2.0); EOS # 0.2 K/uL (0.0-0.7); EOS % 1.6 % (0.0-4.0); HEMATOCRIT 36.5 % (35.0-51.0); LYMPH # 1.9 K/uL (1.0-4.3); LYMPH % 13.3 % (20.0-40.0); MEAN CELL VOLUME 86.6 fL (80.0-94.0); MEAN CORPUSCULAR HEMOGLOBIN 28.3 pg (27.0-31.0); MEAN CORPUSCULAR HGB CONC 32.6 g/dL (33.0-37.0); MONO # 1.1 K/uL (0.0-0.8); MONO % 7.5 % (0.0-10.0); RED CELL DISTRIBUTION WIDTH 14.5 % (11.5-14.5); WHITE BLOOD COUNT 14.4 K/uL (4.8-10.8)
--- NOTE | 2016-07-22 10:34 | PCM.URO ---
Urology Progress Note - General General: No Complaints, Tolerating Diet - Subjective Abdominal Pain: No Flank Pain: No Hematuria: No Chest Pain: No Fever & Chills: No - Objective Lab Studies: Reviewed Lab Results Last 24 Hours: Laboratory Results - last 24 hr 07/22/16 07:00 WBC 14.4 H RBC 4.22 L Hgb 11.9 L Hct 36.5 MCV 86.6 MCH 28.3 MCHC 32.6 L RDW 14.5 Plt Count 401 H MPV 8.0 Neut % (Auto) 77.1 H Lymph % (Auto) 13.3 L [place] % (Auto) 7.5 Eos % (Auto) 1.6 Baso % (Auto) 0.5 Neut # 11.1 H Lymph # 1.9 [place] # 1.1 H Eos # 0.2 Baso # 0.1 Sodium 139 Potassium 3.8 Chloride 105 Carbon Dioxide 24 Anion Gap 14 BUN 32 H Creatinine 1.0 Est GFR ( Amer) > 60 Est GFR (Non-Af Amer) > 60 Random Glucose 89 Calcium 7.7 L Total Bilirubin 0.3 Direct Bilirubin 0.3 AST 12 L D ALT 24 Alkaline Phosphatase 73 Total Protein 5.2 L Albumin 2.7 L Globulin 2.5 Albumin/Globulin Ratio 1.1 Intake & Output: Intake & Output 07/21/16 07/22/16 07/22/16 18:59 06:59 18:59 Intake Total 420 Output Total 700 1550 800 Balance -700 -4930 -800 Intake: Intake, IV Amount 100 Left Antecubital 100 Oral 320 Output: Urine 700 1550 800 3-way Urethral 800 Urethral ([place]) 700 1550 Other: # Bowel Movements 0 Vital Signs: Vital Signs - 24 hr 07/21/16 07/21/16 07/22/16 15:53 23:27 08:00 Temperature 98.3 F 97.9 F Pulse Rate 75 75 82 Respiratory 20 20 Rate Blood Pressure 132/69 143/76 O2 Sat by Pulse 95 95 Oximetry 07/22/16 08:22 Temperature 97.6 F Pulse Rate 82 Respiratory 20 Rate Blood Pressure 162/98 H O2 Sat by Pulse 97 Oximetry - Physical Exam Abdominal Exam: Soft, Non-Tender, Non-Distended Bowel Sounds: Normal Dressing: Dry, Intact Back: No CVA Tenderness Genitalia: Without Inflammation Urinary Catheter Draining Well: Yes Urine Color: Clear, Yellow - Plan Additional Information: IMP: UTI. OTHERWISE PROGRESSING WELL. PATH : BPH - Date & Time of Note Date: 07/22/16 Time: 10:35
--- NOTE | 2016-07-22 13:08 | CP.PCM.PN ---
Subjective - Date & Time of Evaluation Date of Evaluation: 07/22/16 Time of Evaluation: 13:07 - Subjective Subjective: AFEBRILE LESS PAIN LESS DARINAGE IV AB Objective - Vital Signs/Intake and Output Vital Signs (last 24 hours): Temp Pulse Resp BP Pulse Ox 97.6 F 80 20 162/98 H 97 07/22/16 08:22 07/22/16 11:45 07/22/16 08:22 07/22/16 08:22 07/22/16 11:45 Intake and Output: 07/22/16 07/22/16 11:59 23:59 Output Total 1600 Balance -1600 - Medications Medications: Current Medications Amlodipine Besylate (Norvasc) 10 mg PO DAILY [facility] Last Admin: 07/22/16 09:43 Dose: 10 mg Docusate Sodium (Colace) 100 mg PO TID [facility] Last Admin: 07/22/16 09:43 Dose: 100 mg Tigecycline 50 mg/ Dextrose 100 mls @ 100 mls/hr IV Q12H [facility] Last Admin: 07/22/16 05:28 Dose: 100 mls/hr Losartan Potassium (Cozaar) 100 mg PO DAILY [facility] Last Admin: 07/22/16 09:43 Dose: 100 mg Oxybutynin Chloride (Ditropan Tab) 5 mg PO TID [facility] Last Admin: 07/22/16 09:43 Dose: 5 mg Zolpidem Tartrate (Ambien) 10 mg PO HS PRN PRN Reason: Insomnia Last Admin: 07/21/16 23:58 Dose: 10 mg - Labs Labs: 07/22/16 07:00 07/22/16 07:00
--- NOTE | 2016-07-22 13:40 | CP.PCM.PN ---
Subjective - Date & Time of Evaluation Date of Evaluation: 07/22/16 Time of Evaluation: 13:40 - Subjective Subjective: CHIEF COMPLAINTS TODAY : afebrile, vss Awake and alert. c/o serous drainage from the wound site getting less Dressing in place [place] in place. at bedside resting in bed with him ROS. HEENT : N. Resp : No SOB wheezing, cough Cardio : No CP, PND orthopnea GI : +ve ABDOMINAL PAIN SUPRAPUBIC. DRESSING IN PLACE.. NO NAUSEA OR VOMITING. 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 Musculoskel : N Ext. : Pedal pulses intact, no edema or calf pain Derm : N Psych : N. PE. Pt. is alert awake in no distress. V.S As noted in the chart Head ,ear nose,throat and eyes : Normal. Neck : Supple with normal carotids. Lungs: Clear air entry. Heart : S1 & S2 normal . . No murmur. S4 + Abd : Soft MILD TENDERNESS POSTOPERATIVE SITE WITH normal bowel sounds. DRESSING CLEAN AND DRY. Neuro : Moves all ext. with no localized deficit. Ext : No edema with intact pulses. Neg. calf tenderness Derm : No rashes or decubitus ulcer. Radiology/Labs . blood cultures 07/17/16 -ve for 24 hours Urine culture +ve MDR KLEBSIELLA PNEUMONIAE S- ONLY TO TYGACIL AND COLISTIN CREATININE 1.0/bun 35. repeat UA 07/21/16 hazy 3+ blood, 3+ leukocytes, WBC 797, wbc clumps many. RBCs 1224. Objective - Vital Signs/Intake and Output Vital Signs (last 24 hours): Temp Pulse Resp BP Pulse Ox 97.6 F 80 20 162/98 H 97 07/22/16 08:22 07/22/16 11:45 07/22/16 08:22 07/22/16 08:22 07/22/16 11:45 Intake and Output: 07/22/16 07/22/16 06:59 18:59 Intake Total 420 Output Total 1550 800 Balance -1130 -800 - Medications Medications: Current Medications Amlodipine Besylate (Norvasc) 10 mg PO DAILY [facility] Last Admin: 07/22/16 09:43 Dose: 10 mg Docusate Sodium (Colace) 100 mg PO TID [facility] Last Admin: 07/22/16 09:43 Dose: 100 mg Tigecycline 50 mg/ Dextrose 100 mls @ 100 mls/hr IV Q12H [facility] Last Admin: 07/22/16 05:28 Dose: 100 mls/hr Losartan Potassium (Cozaar) 100 mg PO DAILY [facility] Last Admin: 07/22/16 09:43 Dose: 100 mg Oxybutynin Chloride (Ditropan Tab) 5 mg PO TID [facility] Last Admin: 07/22/16 09:43 Dose: 5 mg Zolpidem Tartrate (Ambien) 10 mg PO HS PRN PRN Reason: Insomnia Last Admin: 07/21/16 23:58 Dose: 10 mg - Labs Labs: 07/22/16 07:00 07/22/16 07:00 Assessment and Plan - Assessment and Plan (Free Text) Assessment: Assessment: -POSTOPERATIVE S/P SUPRAPUBIC PROSTATECTOMY/CYSTOLITHOTOMY. -LEUKOCYTOSIS. -Urinary leakage from the suprapubic wound improving -UROSEPSIS/CYSTITIS-MDR kLEBSIELLA PNEUMONIAE. -HYPERTENSION. -HX OF INTRACRANIAL HEMORRHAGE S/P GILBERT HOLE. PLAN; REPEAT URINE CULTURES showing gram-negative rods -identification pending Continue iv TYGACIL 100 MG iv PIGGYBACK LOADING DOSE.07/17/16 F/U TYGACIL 50 MG EVERY 12 HOURLY.-DATE 5. WILL ADJUST ANTIBIOTICS AFTER OBTAINING REPEAT CULTURES . follow-up CBC and BMP.
[2016-07-23] MEDS: Tigecycline 50 MG in Dextrose 5% In Water 100 ML IV SCH ×2 (05:36→17:54)
--- NOTE | 2016-07-23 12:55 | CP.PCM.PN ---
Subjective - Date & Time of Evaluation Date of Evaluation: 07/23/16 Time of Evaluation: 12:54 - Subjective Subjective: D/W PT. AND PT WILL GO TO [facility] REHAB AFEBRILE LESS ABD. PAIN WBC 14.2 Objective - Vital Signs/Intake and Output Vital Signs (last 24 hours): Temp Pulse Resp BP Pulse Ox 98.0 F 70 20 163/97 H 95 07/23/16 09:13 07/23/16 09:13 07/23/16 09:13 07/23/16 09:13 07/23/16 09:13 Intake and Output: 07/23/16 07/23/16 11:59 23:59 Output Total 700 Balance -700 - Medications Medications: Current Medications Amlodipine Besylate (Norvasc) 10 mg PO DAILY [facility] Last Admin: 07/23/16 09:35 Dose: 10 mg Docusate Sodium (Colace) 100 mg PO TID [facility] Last Admin: 07/23/16 09:35 Dose: 100 mg Tigecycline 50 mg/ Dextrose 100 mls @ 100 mls/hr IV Q12H [facility] Last Admin: 07/23/16 05:36 Dose: 100 mls/hr Losartan Potassium (Cozaar) 100 mg PO DAILY [facility] Last Admin: 07/23/16 09:35 Dose: 100 mg Oxybutynin Chloride (Ditropan Tab) 5 mg PO TID [facility] Last Admin: 07/23/16 09:40 Dose: 5 mg Zolpidem Tartrate (Ambien) 10 mg PO HS PRN PRN Reason: Insomnia Last Admin: 07/21/16 23:58 Dose: 10 mg - Labs Labs: 07/22/16 07:00 07/22/16 07:00
--- NOTE | 2016-07-23 13:20 | CP.PCM.PN ---
Subjective - Date & Time of Evaluation Date of Evaluation: 07/23/16 Time of Evaluation: 13:20 - Subjective Subjective: CHIEF COMPLAINTS TODAY : afebrile, vss Awake and alert. c/o serous drainage from the wound site getting less Dressing in place Bentley in place. at bedside resting in bed with him ROS. HEENT : N. Resp : No SOB wheezing, cough Cardio : No CP, PND orthopnea GI : +ve ABDOMINAL PAIN SUPRAPUBIC. DRESSING IN PLACE.. NO NAUSEA OR VOMITING. 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 Musculoskel : N Ext. : Pedal pulses intact, no edema or calf pain Derm : N Psych : N. PE. Pt. is alert awake in no distress. V.S As noted in the chart Head ,ear nose,throat and eyes : Normal. Neck : Supple with normal carotids. Lungs: Clear air entry. Heart : S1 & S2 normal . . No murmur. S4 + Abd : Soft MILD TENDERNESS POSTOPERATIVE SITE WITH normal bowel sounds. DRESSING CLEAN AND DRY. Neuro : Moves all ext. with no localized deficit. Ext : No edema with intact pulses. Neg. calf tenderness Derm : No rashes or decubitus ulcer. Radiology/Labs . blood cultures 07/17/16 -ve for 24 hours Urine culture +ve MDR KLEBSIELLA PNEUMONIAE S- ONLY TO TYGACIL AND COLISTIN CREATININE 1.0/bun 35. repeat UA 07/21/16 hazy 3+ blood, 3+ leukocytes, WBC 797, wbc clumps many. RBCs 1224. repeat urine cultures +ve 10-50,000 gram-negative rods, no sensitivity done. Objective - Vital Signs/Intake and Output Vital Signs (last 24 hours): Temp Pulse Resp BP Pulse Ox 98.0 F 70 20 163/97 H 95 07/23/16 09:13 07/23/16 09:13 07/23/16 09:13 07/23/16 09:13 07/23/16 09:13 Intake and Output: 07/23/16 07/23/16 06:59 18:59 Intake Total 420 Output Total 1750 Balance -1330 - Medications Medications: Current Medications Amlodipine Besylate (Norvasc) 10 mg PO DAILY [facility] Last Admin: 07/23/16 09:35 Dose: 10 mg Docusate Sodium (Colace) 100 mg PO TID [facility] Last Admin: 07/23/16 09:35 Dose: 100 mg Tigecycline 50 mg/ Dextrose 100 mls @ 100 mls/hr IV Q12H [facility] Last Admin: 07/23/16 05:36 Dose: 100 mls/hr Losartan Potassium (Cozaar) 100 mg PO DAILY [facility] Last Admin: 07/23/16 09:35 Dose: 100 mg Oxybutynin Chloride (Ditropan Tab) 5 mg PO TID [facility] Last Admin: 07/23/16 09:40 Dose: 5 mg Zolpidem Tartrate (Ambien) 10 mg PO HS PRN PRN Reason: Insomnia Last Admin: 07/21/16 23:58 Dose: 10 mg - Labs Labs: 07/22/16 07:00 07/22/16 07:00 Assessment and Plan - Assessment and Plan (Free Text) Assessment: Assessment: -POSTOPERATIVE S/P SUPRAPUBIC PROSTATECTOMY/CYSTOLITHOTOMY. -LEUKOCYTOSIS improving -Urinary leakage from the suprapubic wound improving -UROSEPSIS/CYSTITIS-MDR kLEBSIELLA PNEUMONIAE. -HYPERTENSION. -HX OF INTRACRANIAL HEMORRHAGE S/P GILBERT HOLE. PLAN; REPEAT URINE CULTURES showing gram-negative rods -10-50,000. No identification or sensitivity done. Add IV colistin 150 mg every 12 hourly with test dose today if patient tolerates. DC IV Tygacil in a.m. If colistin tolerated Will discharge patient on IV colistin to 250 mg once a day daily x7 days. DC IV Tygacil in a.m.
--- NOTE | 2016-07-23 23:09 | PCM.URO ---
Urology Progress Note - General General: No Complaints, Tolerating Diet - Subjective Abdominal Pain: No Flank Pain: No Nausea: No Vomiting: No Hematuria: No Dsypnea: No Chest Pain: No Fever & Chills: No Other: HAD BM - Objective Intake & Output: Intake & Output 07/23/16 07/23/16 07/24/16 06:59 18:59 06:59 Intake Total 420 580 Output Total 1750 Balance -1330 580 Intake: Intake, IV Amount 100 100 Left Antecubital 100 100 Oral 320 480 Output: Urine 1750 Urethral (Jennings) 1750 Other: # Voids Urethral (Jennings) 3 # Bowel Movements 0 Vital Signs: Vital Signs - 24 hr 07/23/16 07/23/16 07/23/16 00:00 08:00 09:13 Temperature 98.3 F 98.0 F Pulse Rate 82 70 70 Respiratory 20 20 Rate Blood Pressure 148/78 163/97 H O2 Sat by Pulse 96 95 Oximetry 07/23/16 07/23/16 16:00 16:48 Temperature 98 F Pulse Rate 68 68 Respiratory 20 Rate Blood Pressure 112/73 O2 Sat by Pulse 97 Oximetry - Physical Exam Abdominal Exam: Soft, Non-Tender, Non-Distended Bowel Sounds: Normal Wound: Clean, Healing Well Back: No CVA Tenderness Genitalia: Without Inflammation Urinary Catheter Draining Well: Yes Urine Color: Clear, Yellow - Male Phallus: Normal, Uncircumcised Scrotum: Normal Testes: Normal: Bilateral - Plan Discontinue Urinary Catheter: Yes Ambulation - Out of Bed: Yes Intake & Output: Yes Additional Information: ANTIBIOTIC PER ID - Date & Time of Note Date: 07/23/16 Time: 09:05
[2016-07-24 06:29] LABS: BASO # 0.1 K/uL (0.0-0.2); BASO % 0.6 % (0.0-2.0); EOS # 0.2 K/uL (0.0-0.7); EOS % 1.4 % (0.0-4.0); HEMATOCRIT 38.6 % (35.0-51.0); LYMPH # 2.5 K/uL (1.0-4.3); LYMPH % 16.2 % (20.0-40.0); MEAN CORPUSCULAR HEMOGLOBIN 29.2 pg (27.0-31.0); MEAN CORPUSCULAR HGB CONC 33.5 g/dL (33.0-37.0); MEAN PLATELET VOLUME 7.6 fL (7.2-11.7); MONO # 1.1 K/uL (0.0-0.8); MONO % 7.4 % (0.0-10.0); RED CELL DISTRIBUTION WIDTH 14.6 % (11.5-14.5); WHITE BLOOD COUNT 15.4 K/uL (4.8-10.8)
[2016-07-24 06:45] LABS: CHLORIDE 104 mmol/L (98-107); POTASSIUM 4.2 mmol/L (3.6-5.2); SODIUM 142 mmol/L (132-148)
[2016-07-24 06:47] LABS: GFR AFRICAN-AMERICAN > 60
[2016-07-24 06:48] LABS: ALKALINE PHOSPHATASE 92 U/L (38-126); ALT/SGPT 31 U/L (21-72); AST/SGOT 16 U/L (17-59); BILIRUBIN,DIRECT 0.5 mg/dL (0.0-0.4); BILIRUBIN,TOTAL 0.5 mg/dL (0.2-1.3); BLOOD UREA NITROGEN 37 mg/dL (9-20); CALCIUM 7.8 mg/dl (8.6-10.4); CARBON DIOXIDE 25 mmol/L (22-30); GLUCOSE,RANDOM 91 mg/dL (75-110); TOTAL PROTEIN 5.4 g/dL (6.3-8.3)
--- NOTE | 2016-07-24 13:18 | CP.PCM.PN ---
Subjective - Date & Time of Evaluation Date of Evaluation: 07/24/16 Time of Evaluation: 13:16 - Subjective Subjective: D/W PT. AND PT WILL GO TO [facility] AFEBRILE LESS ABD. PAIN WBC 14.2 Objective - Vital Signs/Intake and Output Vital Signs (last 24 hours): Temp Pulse Resp BP Pulse Ox 98.1 F 63 20 125/60 95 07/23/16 23:00 07/24/16 08:00 07/23/16 23:00 07/23/16 23:00 07/23/16 23:00 - Medications Medications: Current Medications Amlodipine Besylate (Norvasc) 10 mg PO DAILY [facility] Last Admin: 07/24/16 09:20 Dose: 10 mg Docusate Sodium (Colace) 100 mg PO TID [facility] Last Admin: 07/24/16 09:20 Dose: 100 mg Colistimethate Sodium 150 mg/ (Sodium Chloride) 100 mls @ 200 mls/hr IV Q12H [facility] Last Admin: 07/24/16 03:03 Dose: 200 mls/hr Losartan Potassium (Cozaar) 100 mg PO DAILY [facility] Last Admin: 07/24/16 09:20 Dose: 100 mg Oxybutynin Chloride (Ditropan Tab) 5 mg PO TID [facility] Last Admin: 07/24/16 09:28 Dose: 5 mg Zolpidem Tartrate (Ambien) 10 mg PO HS PRN PRN Reason: Insomnia Last Admin: 07/21/16 23:58 Dose: 10 mg - Labs Labs: 07/24/16 06:04 07/24/16 06:04
--- NOTE | 2016-07-24 23:38 | CP.PCM.PN ---
Subjective - Date & Time of Evaluation Date of Evaluation: 07/24/16 Time of Evaluation: 23:38 - Subjective Subjective: CHIEF COMPLAINTS TODAY : afebrile, vss Awake and alert. c/o serous drainage from the wound site getting less Dressing in place Bentley in place. at bedside resting in bed with him ROS. HEENT : N. Resp : No SOB wheezing, cough Cardio : No CP, PND orthopnea GI : +ve ABDOMINAL PAIN SUPRAPUBIC. DRESSING IN PLACE.. NO NAUSEA OR VOMITING. 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 Musculoskel : N Ext. : Pedal pulses intact, no edema or calf pain Derm : N Psych : N. PE. Pt. is alert awake in no distress. V.S As noted in the chart Head ,ear nose,throat and eyes : Normal. Neck : Supple with normal carotids. Lungs: Clear air entry. Heart : S1 & S2 normal . . No murmur. S4 + Abd : Soft MILD TENDERNESS POSTOPERATIVE SITE WITH normal bowel sounds. DRESSING CLEAN AND DRY. Neuro : Moves all ext. with no localized deficit. Ext : No edema with intact pulses. Neg. calf tenderness Derm : No rashes or decubitus ulcer. Radiology/Labs . blood cultures 07/17/16 -ve for 24 hours Urine culture +ve MDR KLEBSIELLA PNEUMONIAE S- ONLY TO TYGACIL AND COLISTIN CREATININE 1.0/bun 35. repeat UA 07/21/16 hazy 3+ blood, 3+ leukocytes, WBC 797, wbc clumps many. RBCs 1224. repeat urine cultures +ve 10-50,000 gram-negative rods, no sensitivity done. Objective - Vital Signs/Intake and Output Vital Signs (last 24 hours): Temp Pulse Resp BP Pulse Ox 97.8 F 70 20 122/72 98 07/24/16 15:49 07/24/16 15:49 07/24/16 15:49 07/24/16 15:49 07/24/16 15:49 - Medications Medications: Current Medications Amlodipine Besylate (Norvasc) 10 mg PO DAILY [facility] Last Admin: 07/24/16 09:20 Dose: 10 mg Docusate Sodium (Colace) 100 mg PO TID [facility] Last Admin: 07/24/16 17:43 Dose: 100 mg Colistimethate Sodium 150 mg/ (Sodium Chloride) 100 mls @ 200 mls/hr IV Q12H [facility] Last Admin: 07/24/16 14:22 Dose: 200 mls/hr Losartan Potassium (Cozaar) 100 mg PO DAILY [facility] Last Admin: 07/24/16 09:20 Dose: 100 mg Oxybutynin Chloride (Ditropan Tab) 5 mg PO TID [facility] Last Admin: 07/24/16 17:43 Dose: 5 mg Zolpidem Tartrate (Ambien) 10 mg PO HS PRN PRN Reason: Insomnia Last Admin: 07/21/16 23:58 Dose: 10 mg - Labs Labs: 07/24/16 06:04 07/24/16 06:04 Assessment and Plan - Assessment and Plan (Free Text) Assessment: Assessment: -POSTOPERATIVE S/P SUPRAPUBIC PROSTATECTOMY/CYSTOLITHOTOMY. -LEUKOCYTOSIS improving -Urinary leakage from the suprapubic wound improving -UROSEPSIS/CYSTITIS-MDR kLEBSIELLA PNEUMONIAE. -HYPERTENSION. -HX OF INTRACRANIAL HEMORRHAGE S/P GILBERT HOLE. PLAN; PT FOR MID LINE IN AM. REPEAT URINE CULTURES showing gram-negative rods -10-50,000. No identification or sensitivity done. Add IV colistin 150 mg every 12 hourly with test dose today if patient tolerates. DC IV Tygacil in a.m. If colistin tolerated Will discharge patient on IV colistin to 200 mg once a day daily x7 days. DC IV Tygacil in a.m.
--- NOTE | 2016-07-25 08:58 | PCM.URO ---
Urology Progress Note - General General: No Complaints, Tolerating Diet - Subjective Abdominal Pain: No Nausea: No Vomiting: No Voiding Well: Yes Dysuria: No Hematuria: No Good Stream: Yes Dsypnea: No Chest Pain: No Fever & Chills: No - Objective Lab Studies: Reviewed (leukocytosis) Vital Signs: Vital Signs - 24 hr 07/24/16 07/24/16 07/25/16 15:49 23:00 00:00 Temperature 97.8 F 98.1 F Pulse Rate 70 61 61 Respiratory 20 20 Rate Blood Pressure 122/72 121/62 O2 Sat by Pulse 98 95 Oximetry 07/25/16 07/25/16 07:35 08:21 Temperature 98.0 F Pulse Rate 61 79 Respiratory 20 Rate Blood Pressure 154/82 H O2 Sat by Pulse 96 Oximetry - Physical Exam Abdominal Exam: Soft, Non-Tender, Non-Distended Wound: Clean, Healing Well Back: No CVA Tenderness Genitalia: Without Inflammation Urine Color: Yellow Extremities: Normal: Bilateral - Male Phallus: Normal, Uncircumcised Scrotum: Normal Testes: Normal: Bilateral - Plan Additional Information: IMP: PROGRESSING WELL SINCE CATHETER REMOVAL. UTI. PLAN: ANTIBIOTICS RX PER ID. WOUND CARE - Date & Time of Note Date: 07/24/16 Time: 19:40
--- NOTE | 2016-07-25 12:17 | PCM.URO ---
Urology Progress Note - General General: No Complaints, Tolerating Diet - Subjective Abdominal Pain: No Flank Pain: No Nausea: No Voiding Well: Yes Hematuria: No Good Stream: Yes Dsypnea: No Chest Pain: No Fever & Chills: No - Objective Vital Signs: Vital Signs - 24 hr 07/24/16 07/24/16 07/25/16 15:49 23:00 00:00 Temperature 97.8 F 98.1 F Pulse Rate 70 61 61 Respiratory 20 20 Rate Blood Pressure 122/72 121/62 O2 Sat by Pulse 98 95 Oximetry 07/25/16 07/25/16 07:35 08:21 Temperature 98.0 F Pulse Rate 61 79 Respiratory 20 Rate Blood Pressure 154/82 H O2 Sat by Pulse 96 Oximetry - Physical Exam Abdominal Exam: Soft, Non-Tender, Non-Distended Dressing: Dry, Intact Back: No CVA Tenderness Urine Color: Yellow - Male Phallus: Normal - Plan Additional Information: imp: progressing well - Date & Time of Note Date: 07/25/16 Time: 12:17
--- NOTE | 2016-07-25 13:11 | CP.PCM.PN ---
Subjective - Date & Time of Evaluation Date of Evaluation: 07/25/16 Time of Evaluation: 13:10 - Subjective Subjective: LESS ABD. PAIN AFEBRILE P/E : POST OP ABD , REST NORMAL REHAB FOR IV AB PICC LINE IN Objective - Vital Signs/Intake and Output Vital Signs (last 24 hours): Temp Pulse Resp BP Pulse Ox 98.0 F 79 20 154/82 H 96 07/25/16 08:21 07/25/16 08:21 07/25/16 08:21 07/25/16 08:21 07/25/16 08:21 - Medications Medications: Current Medications Amlodipine Besylate (Norvasc) 10 mg PO DAILY [facility] Last Admin: 07/25/16 09:13 Dose: 10 mg Docusate Sodium (Colace) 100 mg PO TID [facility] Last Admin: 07/25/16 09:13 Dose: 100 mg Colistimethate Sodium 150 mg/ (Sodium Chloride) 100 mls @ 200 mls/hr IV Q12H [facility] Last Admin: 07/25/16 02:00 Dose: 200 mls/hr Losartan Potassium (Cozaar) 100 mg PO DAILY [facility] Last Admin: 07/25/16 09:13 Dose: 100 mg Oxybutynin Chloride (Ditropan Tab) 5 mg PO TID [facility] Last Admin: 07/25/16 09:13 Dose: 5 mg Zolpidem Tartrate (Ambien) 10 mg PO HS PRN PRN Reason: Insomnia Last Admin: 07/21/16 23:58 Dose: 10 mg - Labs Labs: 07/24/16 06:04 07/24/16 06:04
--- NOTE | 2016-07-25 14:40 | CP.PCM.PN ---
Subjective - Date & Time of Evaluation Date of Evaluation: 07/25/16 Time of Evaluation: 14:40 - Subjective Subjective: afebrile. NO COMPLAINTS. MID LINE IN CASE DISCUSSED WITH RN IV COLISTIN 200MG IV [id number] X 7DAYS . F/U CBC/DIFF AND BMP ON THURSDAY IN [facility] . LINE CARE PER PMD. Objective - Vital Signs/Intake and Output Vital Signs (last 24 hours): Temp Pulse Resp BP Pulse Ox 98.0 F 79 20 154/82 H 96 07/25/16 08:21 07/25/16 14:10 07/25/16 08:21 07/25/16 08:21 07/25/16 08:21 - Medications Medications: Current Medications Amlodipine Besylate (Norvasc) 10 mg PO DAILY [facility] Last Admin: 07/25/16 09:13 Dose: 10 mg Docusate Sodium (Colace) 100 mg PO TID [facility] Last Admin: 07/25/16 13:55 Dose: 100 mg Colistimethate Sodium 150 mg/ (Sodium Chloride) 100 mls @ 200 mls/hr IV Q12H [facility] Last Admin: 07/25/16 13:55 Dose: 200 mls/hr Losartan Potassium (Cozaar) 100 mg PO DAILY [facility] Last Admin: 07/25/16 09:13 Dose: 100 mg Oxybutynin Chloride (Ditropan Tab) 5 mg PO TID [facility] Last Admin: 07/25/16 13:55 Dose: 5 mg Zolpidem Tartrate (Ambien) 10 mg PO HS PRN PRN Reason: Insomnia Last Admin: 07/21/16 23:58 Dose: 10 mg - Labs Labs: 07/24/16 06:04 07/24/16 06:04 - Constitutional Appears: No Acute Distress - Head Exam Head Exam: NORMAL INSPECTION - Eye Exam Eye Exam: EOMI, PERRL - ENT Exam ENT Exam: Mucous Membranes Moist - Neck Exam Neck Exam: Normal Inspection - Respiratory Exam Respiratory Exam: Clear to Ausculation Bilateral - Cardiovascular Exam Cardiovascular Exam: REGULAR RHYTHM, +S1, +S2 - GI/Abdominal Exam GI & Abdominal Exam: Soft, Normal Bowel Sounds (wound healing .) - Neurological Exam Neurological Exam: Awake, CN II-XII Intact, Normal Gait, Oriented x3 - Psychiatric Exam Psychiatric exam: Normal Mood - Skin Skin Exam: Normal Color, Warm
[2016-07-25 15:42] VITALS: BP 154/90; PULSE 71; TEMP 98.4; O2SAT 95
--- NOTE | 2016-07-26 13:42 | CP.PCM.DIS ---
Provider - Provider Date of Admission: 07/15/16 06:34 Attending physician: Nazanin Pablo MD Time Spent in preparation of Discharge (in minutes): 30 Hospital Course - Lab Results Lab Results: Micro Results 07/17/16 17:15 Blood-Venous Blood Culture - Final NO GROWTH AFTER 5 DAYS 07/17/16 17:15 Blood-Venous Gram Stain - Final TEST NOT PERFORMED 07/17/16 17:00 Blood-Venous Blood Culture - Final NO GROWTH AFTER 5 DAYS 07/17/16 17:00 Blood-Venous Gram Stain - Final TEST NOT PERFORMED 07/21/16 09:00 Urine,Jennings Urine Culture - Final Gram Negative Miles 07/15/16 Unknown Urine,Clean Catch Urine Culture - Final Klebsiella Pneumoniae Ssp Pneu Most Recent Lab Values WBC 15.4 K/uL (4.8-10.8) H 07/24/16 06:04 RBC 4.44 Mil/uL (4.40-5.90) 07/24/16 06:04 Hgb 13.0 g/dL (12.0-18.0) 07/24/16 06:04 Hct 38.6 % (35.0-51.0) 07/24/16 06:04 MCV 87.0 fL (80.0-94.0) 07/24/16 06:04 MCH 29.2 pg (27.0-31.0) 07/24/16 06:04 MCHC 33.5 g/dL (33.0-37.0) 07/24/16 06:04 RDW 14.6 % (11.5-14.5) H 07/24/16 06:04 Plt Count 462 K/uL (130-400) H 07/24/16 06:04 MPV 7.6 fL (7.2-11.7) 07/24/16 06:04 Neut % (Auto) 74.4 % (50.0-75.0) 07/24/16 06:04 Lymph % (Auto) 16.2 % (20.0-40.0) L 07/24/16 06:04 Graves % (Auto) 7.4 % (0.0-10.0) 07/24/16 06:04 Eos % (Auto) 1.4 % (0.0-4.0) 07/24/16 06:04 Baso % (Auto) 0.6 % (0.0-2.0) 07/24/16 06:04 Neut # 11.5 K/uL (1.8-7.0) H 07/24/16 06:04 Lymph # 2.5 K/uL (1.0-4.3) 07/24/16 06:04 Graves # 1.1 K/uL (0.0-0.8) H 07/24/16 06:04 Eos # 0.2 K/uL (0.0-0.7) 07/24/16 06:04 Baso # 0.1 K/uL (0.0-0.2) 07/24/16 06:04 Neutrophils % (Manual) 84 % (50-75) H 07/18/16 09:04 Band Neutrophils % 1 % (0-2) 07/18/16 09:04 Lymphocytes % (Manual) 11 % (20-40) L 07/18/16 09:04 Monocytes % (Manual) 4 % (0-10) 07/18/16 09:04 Platelet Estimate Normal (NORMAL) 07/18/16 09:04 Anisocytosis (manual) Slight 07/18/16 09:04 Sodium 142 mmol/L (132-148) 07/24/16 06:04 Potassium 4.2 mmol/L (3.6-5.2) 07/24/16 06:04 Chloride 104 mmol/L (98-107) 07/24/16 06:04 Carbon Dioxide 25 mmol/L (22-30) 07/24/16 06:04 Anion Gap 17 (10-20) 07/24/16 06:04 BUN 37 mg/dL (9-20) H 07/24/16 06:04 Creatinine 1.2 MG/DL (0.8-1.5) 07/24/16 06:04 Est GFR ( Amer) > 60 07/24/16 06:04 Est GFR (Non-Af Amer) 60 07/24/16 06:04 POC Glucose (mg/dL) 94 mg/dL (65-110) 07/20/16 16:37 Random Glucose 91 mg/dL (75-110) 07/24/16 06:04 Calcium 7.8 mg/dl (8.6-10.4) L 07/24/16 06:04 Total Bilirubin 0.5 mg/dL (0.2-1.3) 07/24/16 06:04 Direct Bilirubin 0.5 mg/dL (0.0-0.4) H 07/24/16 06:04 AST 16 U/L (17-59) L D 07/24/16 06:04 ALT 31 U/L (21-72) 07/24/16 06:04 Alkaline Phosphatase 92 U/L (38-126) 07/24/16 06:04 Total Protein 5.4 g/dL (6.3-8.3) L 07/24/16 06:04 Albumin 2.7 g/dL (3.5-5.0) L 07/24/16 06:04 Globulin 2.7 gm/dL (2.2-3.9) 07/24/16 06:04 Albumin/Globulin Ratio 1.0 (1.0-2.1) 07/24/16 06:04 Urine Color Yellow (YELLOW) 07/21/16 03:45 Urine Clarity Hazy (Clear) 07/21/16 03:45 Urine pH 5.0 (5.0-8.0) 07/21/16 03:45 Ur Specific [place] 1.014 (1.003-1.030) 07/21/16 03:45 Urine Protein 2+ mg/dL (NEGATIVE) H 07/21/16 03:45 Urine Glucose (UA) Normal mg/dL (Normal) 07/21/16 03:45 Urine Ketones Negative mg/dL (NEGATIVE) 07/21/16 03:45 Urine Blood 3+ (NEGATIVE) H 07/21/16 03:45 Urine Nitrate Negative (NEGATIVE) 07/21/16 03:45 Urine Bilirubin Negative (NEGATIVE) 07/21/16 03:45 Urine Urobilinogen Normal mg/dL (0.2-1.0) 07/21/16 03:45 Ur Leukocyte Esterase 3+ Shayla/uL (Negative) H 07/21/16 03:45 Urine WBC (Auto) 797 /hpf (0-5) H 07/21/16 03:45 Urine RBC (Auto) 1224 /hpf (0-3) H 07/21/16 03:45 Urine WBC Clumps (Auto) Many /hpf (NONE) H 07/21/16 03:45 Ur Squamous Epith Cells 2 /hpf (0-5) 07/21/16 03:45 Stone Source Bladder (()) 07/15/16 11:05 Stone Weight 2.8580 g (()) 07/15/16 11:05 Stone Composition 1 (()) 07/15/16 11:05 Stone Composition 2 TNP 07/15/16 11:05 Stone Nidus Not observed (()) 07/15/16 11:05 Blood Type O POSITIVE 07/15/16 07:30 Antibody Screen Negative 07/15/16 07:30 - Hospital Course Hospital Course: PT IS S/P SUPRAPUBIC PROSTECTOMY FOR MEDICAL F/U CURRENTLY POST OP PAST HIST. 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 HAD UNEVENTFUL POST OP URINE SHOWED RESISTENT KLEB PNEUMONIA ID WAS CONSULTED , IV AB IMPROVED UROLOGY F/U POST OP CARE PT TRANSFER TO REHAB FOR PT AND IV AB Discharge Exam - Head Exam Head Exam: NORMAL INSPECTION Discharge Plan - Discharge Medications Prescriptions: Colistimethate [Colistimethate Sodium] 200 mg IV DAILY #7 vial - Follow Up Plan Condition: GOOD Disposition: REHAB FACILITY/REHAB UNIT Instructions: Benign Prostatic Hypertrophy (DC), Suprapubic Prostatectomy (DC) Additional Instructions: CLEAN THE SURGICAL WOUND WITH STERILE SALINE,PAT DRY AND APPLY A DSD. PATIENT TO FOLLOW UP WITH DR Heena PABLO IN THE OFFICE IN TWO WEEKS. Referrals: Jojo Ramsay MD [Staff Provider] - Nura Sharma MD [Staff Provider] - Nazanin Pablo MD [Staff Provider] -
== END 2016-07-25 16:40 | DRG 707 ==
LOC: C.9S 06:34 → C.6T 17:45
PROVIDERS: ADMIT Urology; ATTEND Urology
PROC: 0VT00ZZ Resection of Prostate, Open Approach (ICD-10-PCS; principal; 2016-07-15 07:30)
PROC: 0TCB0ZZ Extirpation of Matter from Bladder, Open Approach (ICD-10-PCS; 2016-07-15 07:30)
DX: D29.1 Benign neoplasm of prostate (principal); J81.1 Chronic pulmonary edema; N30.90 Cystitis, unspecified without hematuria; I25.9 Chronic ischemic heart disease, unspecified; N21.0 Calculus in bladder; B96.1 Klebsiella pneumoniae [K. pneumoniae] as the cause of diseases classified elsewhere; F17.210 Nicotine dependence, cigarettes, uncomplicated; E78.00 Pure hypercholesterolemia, unspecified; Z86.73 Personal history of transient ischemic attack (TIA), and cerebral infarction without residual deficits; I12.9 Hypertensive chronic kidney disease with stage 1 through stage 4 chronic kidney disease, or unspecified chronic kidney disease; N18.9 Chronic kidney disease, unspecified; N39.498 Other specified urinary incontinence; N99.89 Other postprocedural complications and disorders of genitourinary system; Y83.8 Other surgical procedures as the cause of abnormal reaction of the patient, or of later complication, without mention of misadventure at the time of the procedure